=== PATIENT | male | born 1960 | race Caucasian/White ===

== ENCOUNTER 2020-10-02 08:35 | Outpatient (REF) | payer BC, SELFPAY ==
--- NOTE | 2020-10-02 08:43 | XR_ITS ---
EXAMINATION: XR KNEE, RIGHT CLINICAL INFORMATION: Pain right knee. COMPARISON: None TECHNIQUE: Four views of the right knee, weightbearing AP exam. FINDINGS: There is reduction in the medial and patellofemoral compartment joint space with mild superior patellar enthesophytes. No joint effusion suspected. There are no loose bodies or bony erosive changes. XR/XR knee RT 4V IMPRESSION: Mild early degenerative changes medial compartment right knee. No visible acute fracture, dislocation or subluxation seen. There is mild superior patellar enthesophytes.
== END 2020-10-02 08:36 | disposition home or self-care (01) ==
LOC: HO.HMGCX 08:35
PROVIDERS: PCP Nurse Practitioner Family; Visit Provider Nurse Practitioner Family
DX: M25.561 Pain in right knee (principal)
CPT/HCPCS: 73564

== ENCOUNTER 2020-11-23 07:00 | Outpatient (RCR) | payer BC, SELFPAY ==
--- NOTE | 2020-10-12 09:35 | MHC.PT.EP ---
[facility] [place] Office [place] Office [place] Office [address] Stephen Duggan [address] [phone] F: [phone] F: [phone] F: [phone] F: [phone] Physical Therapy Plan of Care Date of Evaluation: 10/12/20 Date of Surgery: Diagnosis: This is a 60 yo male presenting to skilled PT with a script for pain in the R knee. Assessment: This is a 60 yo male presenting to skilled PT with a script for pain in the R knee. This patient comes in today reporting knee pain that has been ongoing for about 3 weeks insidiously. He has had a medial meniscus repair on this R side about 7 years ago and his symptoms seem to be in the same area now. He is being seen by his primary care but not seeing an ortho at this time, not interested in a total knee replacement. Pain is described as constant, mainly located medially and described as sharp. He also has pain that is located medially/posteriorly at the hamstring as well especially with attempting full extension. He does not really feel functionally limited in anything as he is active and does not change his way of living. However, he does report just a general discomfort, unable to fully extend, unstable with getting on/off the ground and does not feel totally comfortable with SLS stability either . He is wearing a sleeve brace on occasion but has been getting irritated/a rash from this (he does like the compression and stability of it however. Assessment reveals pain that ranges from a 1-5/10 depending on mobility. He demos decreased ROM mainly with hamstring and knee extension, impaired quad strength, tenderness along medial L MCL/hamstring tendon, decreased patella mobility on the L and impaired gait pattern. He is functionally limited in transfers off the floor, reaching full extension with ambulation and general pain management. He is a good candidate for skilled PT 2x/wk for 5wks. Frequency and Duration: The patient will be seen 2x/wk for 5wks Short Term Goals: I in HEP Demo an improvement in knee ROM by at least 10 degs Demos proper quad activation without cuing Weans out of brace Nursing Home Goals: Patient will demo normal ROM and strength Patient will improve LEFs by 10 points Patient will demo proper gait pattern without pain, reaching full extension and proper heel strike Pain improved to no more than 1/10 at the worst Treatment Plan: Modalities to reduce pain, spasms and effusion. Manual therapy to restore motion and function. Therapeutic exercise to improve strength and flexibility. Neuromuscular re-education for posture and balance. Therapeutic activities to return to functional activities of daily living. Electronically signed by: Ann Marie Jeffers PT Please sign and return to therapist. Thank you for your referral.
--- NOTE | 2021-01-03 13:43 | MHC.PT.DC ---
[facility] [place] Office [place] Office [place] Office [address] Stephen Duggan [address] [facility] [phone] F: [phone] F: [phone] F: [phone] F: [phone] Physical Therapy Discharge Report Diagnosis: pain in the R knee Date of Surgery: Date of Evaluation: 10/12/20 Date of Discharge: Treatments to Date: 10 Cancellations to Date: 0 No Shows to Date: 0 Discharge Status: Discharge Summary: despite excellent effort on the part of the patient and good compliance, he was unable to shake the pain which is nagging on a daily basis. while he will continue with HEP, he is likely appropriate for continued monitoring as TKA may be his best bet for pain relief down the road. Electronically signed by: Lc Zhang PT Please sign and return to therapist. Thank you for your referral.
== END 2021-01-03 13:44 | disposition home or self-care (01) ==
LOC: HO.PTCHIC 07:00
PROVIDERS: PCP Nurse Practitioner Family; Visit Provider Nurse Practitioner Family
DX: M25.561 Pain in right knee (principal)
CPT/HCPCS: 97110; 97162

== ENCOUNTER 2021-01-23 13:42 | Outpatient (REF) | payer BC, SELFPAY ==
--- NOTE | ~2021-01-23 | XR_ITS ---
EXAMINATION: XR CERVICAL SPINE CLINICAL INFORMATION: M50.90 - Cervical disc disorder, unspecified. COMPARISON: None TECHNIQUE: 3 views of the cervical spine were obtained. FINDINGS: There is straightening cervical lordosis with mild rightward tilting on coronal view. No cervical vertebral compression, destructive process, or prevertebral soft tissue swelling. The odontoid appears intact. There are degenerative disc changes with disc narrowing greatest at C5-C6 and C6-C7 with disc narrowing and vertebral spurring. There is borderline retrolisthesis C5 on C6 of under 3 mm. There are lesser degenerative disc changes C2-C3 and C4-C5. There are osteophytes left lateral facet mid cervical region. XR/XR cervical spine 3V IMPRESSION: 1. Degenerative disc changes greatest at C5-C6 with associated vertebral spurring and borderline retrolisthesis. 2. Prominent degenerative disc changes also present at C6-C7. 3. No vertebral compression or destructive process.
[2021-01-23 16:48] LABS: Alanine Aminotransferase 23 U/L (0-40); Albumin Level 4.3 g/dL (3.5-5.0); Alkaline Phosphatase 97 U/L (39-117); Anion Gap 13 (12-20); Aspartate Amino Transferase 20 U/L (5-37); Bilirubin Total 1.3 mg/dL (0.0-1.0); Blood Urea Nitrogen 16 mg/dL (9-16); Calcium 9.4 mg/dL (8.4-10.2); Carbon Dioxide 26 mmol/L (22-29); Chloride 103 mmol/L (96-108); Cholesterol 194 mg/dL; Estimated Glomerular Filt Rate > 60; Glucose Fasting 89 mg/dL (60-99); HDL Cholesterol 51 mg/dL; LDL Cholesterol Calculated 122 mg/dl; Potassium 4.4 mmol/L (3.3-5.1); Sodium 138 mmol/L (135-145); Total Protein 7.3 g/dL (6.5-8.0); Triglycerides 109 mg/dL
[2021-01-23 17:08] LABS: Prostate Specific Antigen Scr 2.33 ng/mL (<0.05-4.0); TSH reflex Free T4 1.38 uIU/mL (0.32-4.0)
[2021-01-24 04:40] LABS: SARS COV2 IgG Negative (Negative)
== END 2021-01-23 13:43 | disposition home or self-care (01) ==
LOC: HO.HMGCLDS 13:42
PROVIDERS: PCP Nurse Practitioner Family; Visit Provider Nurse Practitioner Family
DX: Z00.00 Encounter for general adult medical examination without abnormal findings (principal); Z20.822 Contact with and (suspected) exposure to COVID-19; Z12.5 Encounter for screening for malignant neoplasm of prostate; M50.90 Cervical disc disorder, unspecified, unspecified cervical region
CPT/HCPCS: 36415; 72040; 80053; 80061; 84153; 84443; 86769

== ENCOUNTER 2021-02-05 19:26 | Outpatient (REF) | payer BC, SELFPAY ==
--- NOTE | ~2021-02-05 | MR_ITS ---
EXAMINATION: MR KNEE WITHOUT CONTRAST, RIGHT CLINICAL INFORMATION: Right knee pain. Symptoms x6 months. History of meniscal surgery. COMPARISON: 05/16/2014 TECHNIQUE: MRI of the knee without contrast was performed using routine sequences on a high-field scanner. FINDINGS: MENISCI: Medial Meniscus: The posterior horn and body are decreased in size as compared to the prior study, consistent with prior partial meniscectomy. As seen on 02/13 of series 4 and image 05/18 of series 5, there is a new radial component to the tear at the junction of the posterior horn and body with partial extrusion of the meniscal body. Surrounding soft tissues are edematous. There is significant undersurface fraying at the posterior horn. Lateral Meniscus: A very small horizontal tear is suspected at the junction of the posterior horn and body, extending to the meniscal undersurface. LIGAMENTS: Cruciate: Intact. Collateral: Edema signal around the MCL is likely reactive to the underlying meniscal abnormality. Collateral ligaments are intact. EXTENSOR MECHANISM: Enthesopathic spurring is present in the quadriceps tendon insertion of the patella. Quadriceps and patellar tendons are intact. ARTICULAR CARTILAGE/BONE: Patellofemoral Compartment: There is mild nonuniform chondral thinning at the patella with surface irregularity. Mild nonuniform chondral thinning is present in the central trochlea with full-thickness chondral fissuring and surface irregularity. Tiny marginal osteophytes. Medial Compartment: Small marginal osteophytes are present at the medial compartment. There is mild nonuniform chondral thinning at the lateral half of the medial femoral condyle weightbearing surface and at the medial tibial plateau. Small marginal osteophytes. Lateral Compartment: Normal. Mild osteoarthritis in the proximal tibiofibular joint. JOINT FLUID AND BURSAE: Trace joint effusion and Phoenix's cyst. MR/MR knee RT wo con IMPRESSION: 1. Radial tear of the medial meniscus at the junction of the posterior horn and body, superimposed upon changes of prior partial meniscectomy. 2. Very small horizontal partial tear at the lateral meniscus. 3. Minimal osteoarthritis in the patellofemoral and medial compartments. 4. Trace joint effusion and Phoenix's cyst.
== END 2021-02-05 19:27 | disposition home or self-care (01) ==
LOC: HO.MRI 19:26
PROVIDERS: Visit Provider Nurse Practitioner Family
DX: M25.561 Pain in right knee (principal)
CPT/HCPCS: 73721

== ENCOUNTER → 2021-03-06 09:22 | Outpatient (BNVA) | payer BC, SELFPAY | PROVIDERS: PCP Nurse Practitioner Family; Referring Provider Nurse Practitioner Family; Visit Provider Nurse Practitioner Family ==

== ENCOUNTER 2021-05-17 10:00 | Day surgery (SDC) | payer BC, SELFPAY ==
[2021-05-13 10:53] VITALS: BMI 32.8
--- NOTE | 2021-05-16 08:45 | HO.ANESPROP2 ---
Documented by User: Adry Mcclellna NP 05/16/21 08:45 HPI - Anesthesia Eval Consult details Narrative: 60yo M for ?Colonoscopy PMFSH Active Problems Active Problems: All Active Problems (Updated 05/13/21 @ 10:49 by Purvi Mehta, NIKOLAS) Right knee pain (Acute) Physical exam (Acute) Screening PSA (prostate specific antigen) (Acute) Encounter for screening for COVID-19 (Acute) Cervical neck pain with evidence of disc disease (Acute) HTN (hypertension) (Acute) Screening for colon cancer (Acute) Past Medical History Medical History Actinic keratoses Hypertension Family History Family History Father Hypertension Diabetes Mother Hypertension Aneurysm Surgical History Surgical History H/O colonoscopy H/O umbilical hernia repair Hx of arthroscopy of knee Social History Social History Alcohol intake: current Alcohol intake frequency: a few times a week Patient Tobacco Use Status: Tobacco use Unknown Advance Directives Information Provided: No Advance Directives on File: No Meds Allergies Allergy/AdvReac Type Severity Reaction Status Date / Time No Known Allergies Allergy Verified 05/17/21 11:21 Home Medications Medication Instructions Recorded Confirmed Last Taken Type meloxicam 15 mg tablet 15 mg PO DAILY 03/06/21 05/13/21 Unknown History Exam Exam Date and Time: May 16, 2021 0845 Height,Weight and Vital Signs: Height 5 ft 11 in Weight 106.594 kg Assessment and Plan Assessment Anesthesia Assessment: Chart Reviewed Documented by User: Thalia Ferreira MD 05/17/21 12:06 PMFSH Past Medical History Medical History Actinic keratoses Hypertension Family History Family History Father Hypertension Diabetes Mother Hypertension Aneurysm Family history of problems with anesthesia: No Surgical History Surgical History H/O colonoscopy H/O umbilical hernia repair Hx of arthroscopy of knee History of Problems with Anesthesia: No Social History Social History Alcohol intake: current Alcohol intake frequency: a few times a week Patient Tobacco Use Status: Tobacco use Unknown Advance Directives Information Provided: No Advance Directives on File: No Meds Allergies Allergy/AdvReac Type Severity Reaction Status Date / Time No Known Allergies Allergy Verified 05/17/21 11:21 Home Medications Medication Instructions Recorded Confirmed Last Taken Type meloxicam 15 mg tablet 15 mg PO DAILY 03/06/21 05/13/21 Unknown History Exam Airway Mallampati Class: II TM Dist: >3cm Neck ROM: Full Assessment and Plan Assessment Anesthesia Assessment: Anesthesia Plan Discussed Final Anesthetic Review Family History of Problems with Anesthesia: No History of Problems with Anesthesia: No NPO: No ASA Class: II Final Preanesthetic Review: No Changes in Pt Med Stat, Meds/Allgs Chart Reviewed, Consent Obtained/Reviewed and Anes Risks/Benef Reviewed Patient Risk: Low Procedure Risk: Low Assessment/Block/Sedation in SS: Assess/Block/Sedation-SS Anesthetic Plan Anesthetic Plan: MAC: Disposition: Standard PACU
[2021-05-17 11:23] VITALS: BP 138/83; PULSE 78; RESP 16; TEMP 37.2; O2SAT 96
[2021-05-17] MEDS: Lactated Ringers 1,000 ML 100 ML IVCONT (12:00)
--- NOTE | 2021-05-17 12:26 | MHC.SHP ---
Pre-Procedural Eval Section A Date of Service: 05/17/21 The patient is an INPATIENT: No The History & Physical has been completed within 30 days and I have reviewed it.: No Section B Chief Complaint: Screening Details of Present Illness: Colon cancer screening Relevant Family History (Specify if Yes): No Relevant Social History: None Present Medications: see Short Stay Collaborative assessment Medical History: Significant History (Actinic keratoses Hypertension) History of Previous Operations: Relevant previous surgery/procedure and date(s) (H/O colonoscopy H/O umbilical hernia repair) Allergies: Allergies Allergy/AdvReac Type Severity Reaction Status Date / Time No Known Allergies Allergy Verified 05/17/21 11:21 Review of Systems Sugical H&P ROS: Negative: Constitution, Cardiovascular, Respiratory and Gastrointestinal Exam Surgical H&P Exam: Normal: Heart, Normal: Lungs, Normal: Extremities and Normal: Abdomen Plan Diagnosis/Plan: Unchanged I have reviewed the history and physical and performed a pertinent physical examination on my patient. No changes have occurred unless specified.
--- NOTE | 2021-05-17 12:48 | W.PM.OPN ---
Operative Note Operative Note Date of Service: 05/17/21 Narrative: Pre-op diagnosis:?Colon cancer screening Post-op diagnosis:?other (Colon polyps, diverticulosis, hemorrhoids) Procedure:? COLONOSCOPY TILL CECUM WITH SNARE POLYPECTOMY Consent: Indications for the procedure and potential complications of bleeding, perforation, reaction to medications and missed diagnosis were discussed with the patient and informed consent was obtained. Instrument: Olympus PCF H 190 L variable stiffness pediatric colonoscope Monitoring: Vital signs and clinical assessment, intermittent blood pressure monitoring, continuous EKG monitoring, Pulse oximetry and Carbon Dioxide monitoring were done throughout the procedure. Colon withdrawl time was 30 minutes. Procedure: The patient was placed in the left lateral decubitis position and pre-procedure medications were administered. After a digital rectal examination of the ano-rectum, the video colonoscope was inserted into the rectum and advanced through the colon to the cecum. The colonoscope was slowly withdrawn in a retrograde panoramic fashion and the colon mucosa was carefully examined including a retroflexed view of the rectum. Findings and interventions are described below. Procedure Difficulty: Without difficulty Findings: Terminal Ileum: Not evaluated Cecum:? Normal Ascending Colon:? Normal Transverse Colon:? Normal Descending Colon: Moderate diverticulosis Sigmoid Colon:? A 15 to 18 mm sessile polyp removed with a hot snare.? Moderate diverticulosis Rectum:? Normal Ano-rectum:? Moderate internal hemorrhoids Colon preparation:? Good and fair in the right colon due to a thin layer of adherent stools Impression and Post Procedure Diagnosis: Colonoscopy Findings: One medium sized polyps removed Moderate diverticulosis seen in the left colon Moderate hemorrhoids on retroflexed exam. Plan: Await pathology results Patient has an appointment on 05/31/21 in the GI Clinic with ? Bhargavi Larose FNP-MERE . Repeat Colonoscopy interval based on path results - in 3 years if polyps are adenomatous and 5 years if polyps are hyperplastic. Above findings were reviewed with the patient and colon polyps and diverticulosis handouts were given in the discharge area Surgeon:?Jaylon Corrigan MD Anesthesia:?MAC (Sarah Gupta CRNA) Was an Front Of House Manager used for this Procedure?:?Yes Front Of House Manager:?Lalitha Srivastava Estimated blood loss (mL):?0 Pathology:?other (a: sigmoid polyp) Condition:?stable Disposition:?PACU
[2021-05-17 13:37] VITALS: BP 116/67; PULSE 76; RESP 16; TEMP 36.3; O2SAT 94
[2021-05-17 13:52] VITALS: BP 131/85; PULSE 75; RESP 18; TEMP 36.7; O2SAT 97
== END 2021-05-17 14:29 | disposition home or self-care (01) ==
PROVIDERS: PCP Nurse Practitioner Family; Visit Provider Internal Medicine Gastroenterology
PROC: 0DJD8ZZ Inspection of Lower Intestinal Tract, Via Natural or Artificial Opening Endoscopic (ICD-10-PCS; CPT 45378; principal; 2021-05-17 12:00)
DX: Z12.11 Encounter for screening for malignant neoplasm of colon (principal); K63.5 Polyp of colon; K64.8 Other hemorrhoids; K57.30 Diverticulosis of large intestine without perforation or abscess without bleeding
CPT/HCPCS: 45385; 88305

== ENCOUNTER → 2021-05-31 09:28 | Outpatient (BNVA) | payer BC, SELFPAY | PROVIDERS: PCP Nurse Practitioner Family; Visit Provider Nurse Practitioner Family ==

== ENCOUNTER 2021-12-17 07:03 | Outpatient (REF) | payer BC, SELFPAY ==
[2021-12-17 11:34] LABS: Appearance Urine CLEAR; Color Urine YELLOW; Glucose Urine UA NEG (NEG); Leukocyte Esterase Urine NEG (NEG); Nitrite Urine NEG (NEG); Urine Blood NEG (NEG); Urine Ketones NEG (NEG); Urine Protein NEG (NEG-TRACE)
[2021-12-17 11:35] LABS: MANUAL DIFF FLAG NO
[2021-12-17 11:48] LABS: Basophils Absolute Auto 0.1 X10*3/uL (0.0-0.2); Basophils Percent Auto 0.7 % (0-2); Eosinophils Absolute Auto 0.6 X10*3/uL (0.0-0.4); Eosinophils Percent Auto 7.2 % (0-4); Hematocrit 52.1 % (42.0-52.0); Hemoglobin 16.8 g/dl (14.0-18.0); Imm Gran Abs Auto 0.02 X10*3/uL (0.00-0.03); Imm Gran Pct Auto 0.3 % (0.0-0.4); Lymphocytes Percent Auto 13.4 % (20-40); Mean Corpuscular HGB Conc 32.2 g/dl (31.0-36.0); Mean Corpuscular Hemoglobin 28.1 pg (27.0-33.0); Mean Corpuscular Volume 87.3 fL (80.0-98.0); Mean Platelet Volume 11.8 fL (9.4-12.4); Monocytes Absolute Auto 1.1 X10*3/uL (0.1-1.2); Neutrophils Absolute Auto 4.8 x10*3/uL (2.0-8.3); Neutrophils Percent Auto 63.4 % (45-73); Platelet Count 195 X10*3/uL (160-400); Red Blood Count 5.97 X10*6/uL (4.60-5.80); Red Cell Distribution Width 13.7 % (11.0-16.0); White Blood Count 7.6 X10*3/uL (4.8-10.8)
[2021-12-17 12:04] LABS: Alanine Aminotransferase 30 U/L (0-40); Alkaline Phosphatase 91 U/L (39-117); Anion Gap 10 (12-20); Aspartate Amino Transferase 21 U/L (5-37); Bilirubin Total 0.8 mg/dL (0.0-1.0); Blood Urea Nitrogen 13 mg/dL (9-16); Calcium 9.1 mg/dL (8.4-10.2); Carbon Dioxide 29 mmol/L (22-29); Chloride 103 mmol/L (96-108); Cholesterol 177 mg/dL; Estimated Glomerular Filt Rate > 60; Glucose Fasting 103 mg/dL (60-99); HDL Cholesterol 45 mg/dL; LDL Cholesterol Calculated 106 mg/dl; Potassium 4.7 mmol/L (3.3-5.1); Sodium 137 mmol/L (135-145); Total Protein 6.8 g/dL (6.5-8.0); Triglycerides 134 mg/dL
[2021-12-17 12:28] LABS: Ferritin 330 ng/mL (20-250); Folate 11.8 ng/mL (> or = 4.0); TSH reflex Free T4 1.71 uIU/mL (0.32-4.0); Vitamin B12 323 pg/mL (200-900)
== END 2021-12-17 07:04 | disposition home or self-care (01) ==
LOC: HO.HMGCLDS 07:03
PROVIDERS: Visit Provider Nurse Practitioner Family
DX: I10 Essential (primary) hypertension (principal); R42 Dizziness and giddiness
CPT/HCPCS: 36415; 80053; 80061; 81003; 82607; 82728; 82746; 84443; 85025

== ENCOUNTER 2022-01-14 10:08 | Outpatient (REF) | payer BC, SELFPAY ==
--- NOTE | ~2022-01-14 | CT_ITS ---
EXAMINATION: CT HEAD WITHOUT CONTRAST CLINICAL INFORMATION: Dizziness and giddiness COMPARISON: Previous head CT April 2013 TECHNIQUE: Contiguous axial imaging was performed from the skull base to vertex without intravenous administration of contrast. This CT examination was performed using dose optimization techniques as appropriate, variously including the following: *Automated exposure control *Adjustment of mA and/or kV according to patient size (this includes techniques or standardized protocols for targeted exams where dose is matched to indication/reason for exam; i.e. extremities or head) *Use of iterative reconstruction technique DLP: 895 mGy-cm FINDINGS: There is no evidence of acute intracranial hemorrhage or territorial infarction. No abnormal mass effect or midline shift is seen. Crocker to white matter differentiation is well preserved. No extra-axial fluid collections are identified. The ventricles are normal in size. There is no abnormal attenuation within the brain parenchyma. The osseous structures and soft tissues are normal. There is right maxillary and bilateral frontal and ethmoid sinus disease. There is underaeration or hypoplasia of the frontal sinuses. Mastoid air cells and middle ears are clear. CT/CT head/brain wo con IMPRESSION: No acute intracranial findings. Sinusitis.
--- NOTE | ~2022-01-14 | US_ITS ---
EXAMINATION: US EXTRACRANIAL CAROTID DUPLEX, BILATERAL CLINICAL INFORMATION: Visual disturbances COMPARISON: None TECHNIQUE: Real-time ultrasound and Doppler techniques (integrating B-mode 2-D vascular images, Doppler spectral analysis and color-flow Doppler imaging) were utilized to interrogate the extracranial carotid arteries, the vertebral arteries and proximal subclavian arteries bilaterally. The degree of stenosis is determined by criteria similar to NASCET. FINDINGS: Right Side: 1. There is no atherosclerotic plaque seen in the bifurcation/proximal ICA region. 2. The common carotid artery PSV proximally is 96 cm/s and distally 99 cm/s. 3. The proximal internal carotid artery velocities are 93 cm/s systolic and 24 cm/s diastolic. 4. The proximal external carotid artery PSV is 129 cm/s. 5. The vertebral artery shows antegrade flow. 6. The subclavian artery waveforms are normal. Left Side: 1. There is no atherosclerotic plaque seen in the bifurcation/proximal ICA region. 2. The common carotid artery PSV proximally is 145 cm/s and distally 97 cm/s. 3. The proximal internal carotid artery velocities are 90 cm/s systolic and 26 cm/s diastolic. 4. The proximal external carotid artery PSV is 97 cm/s. 5. The vertebral artery shows antegrade flow. 6. The subclavian artery waveforms are normal. US/US carotid duplex BI IMPRESSION: 1. RIGHT: Minimal, non-hemodynamically significant stenosis of the proximal right internal carotid artery corresponding to a 0-49% stenosis by velocity criteria. 2. LEFT: Minimal, non-hemodynamically significant stenosis of the proximal left internal carotid artery corresponding to a 0-49% stenosis by velocity criteria.
== END 2022-01-14 10:09 | disposition home or self-care (01) ==
LOC: HO.US 10:08
PROVIDERS: PCP Nurse Practitioner Family; Visit Provider Nurse Practitioner Family
DX: R42 Dizziness and giddiness (principal); I10 Essential (primary) hypertension; R41.0 Disorientation, unspecified; H53.8 Other visual disturbances
CPT/HCPCS: 70450; 93880

== ENCOUNTER 2023-06-03 07:56 | Outpatient (AMB) | payer BC, SELFPAY ==
--- NOTE | 2023-06-03 08:00 | MHC.PC.OV ---
Vital Signs 06/03/23 08:01 Height 5 ft 11 in Weight 223 lb BMI 31.1 BP 142/88 H Blood Pressure Location Rt brachial Position Sitting Pulse 58 Pulse Source Pulse Oximeter Pulse Oximetry (%) 95 Oxygen Delivery Method Room Air Intake Visit Reasons: PE Allergies No Known Allergies Allergy (Verified 06/03/23 08:06) Tobacco use date assessed: 06/03/23 Dental Screening Dental Screen Date: 06/03/23 Did you have a dental visit in the last 12 months?: Yes Did you have a dental problem in the last 6 months where you did not have access to dental care?: No Was dental information given to patient?: Patient has dentist HPI PE HPI Details Pt is here for a PE. Will order labs. Colon screen is up to date. Due for PSA, will order. Denies dribbling with urination, weak stream, and nocturia. Pt's blood pressure is elevated. Note: He would rather not take any medication. Will have pt monitor his blood pressure at home and record readings. Denies chest pain, shortness of breath, headache, dizziness, and blurred vision. Pt was seeing a case preparer and liner due to being fair skinned, encouraged him to cont to see them. Pt reports a lot of pain due to arthritis of his hands, knees, and shoulder. Educated on the importance of movement, heat. refused NATALIE today. [facility] Medical History Diverticulosis Hypertension Actinic keratoses Surgical History Hx of arthroscopy of knee H/O umbilical hernia repair H/O colonoscopy Family History Father Hypertension Diabetes Mother Hypertension Aneurysm Social History Housing: House Alcohol intake: current Alcohol intake frequency: a few times a week Patient Tobacco Use Status: Former Tobacco user e-Cigarette/Vaping Use: Never Used Second Hand Smoke Exposure: No service: No Current occupational status: employed Current occupation: [employer] Current occupational exposures/hazards: No Cognitive needs: No Hearing needs: No Vision needs: No Review of Systems Const Denies chills and Denies fever(s) Eyes Denies blurry vision ENT Denies vertigo, Denies dizziness and Denies sore throat Card Denies chest pain at rest, Denies chest pain with activity, Denies diaphoresis, Denies dyspnea and Denies dyspnea on exertion Resp Denies cough, Denies dyspnea, Denies dyspnea on exertion and Denies wheezing GI Denies abdominal pain, Denies melena, Denies hematochezia, Denies constipation, Denies diarrhea and Denies loose stools Denies hematuria Musc Denies numbness and Denies tingling Skin/Breast Denies lesions Neuro Denies vertigo, Denies dizziness, Denies numbness and Denies tingling Psych Denies anxiety, Denies depression, Denies homicidal ideation, Denies suicidal ideation and Denies other (substance abuse) Aller/Immun Denies wheezing Physical exam (Primary Care) Vital Signs: Last Vital Signs Pulse 58 06/03/23 08:01 BP 142/88 H 06/03/23 08:01 Pulse Ox 95 06/03/23 08:01 Oxygen Delivery Method Room Air 06/03/23 08:01 BMI result Body Mass Index 31.1 Tobacco/Smoking Status: Tobacco use Status Tobacco use date assessed 06/03/23 06/03/23 08:07 Patient Tobacco Use Status Former Tobacco user 06/03/23 08:10 e-Cigarette/Vaping Use Never Used 06/03/23 08:10 Const General: cooperative Nutritional Appearance: obese Orientation/consciousness: patient oriented x3 HENMT Head: Yes normal to inspection, Yes normocephalic and Yes atraumatic Ears: TM's normal bilaterally Eyes General: appearance normal, both eyes and all related structures Alignment and Position: alignment normal and position normal Neck Neck: Yes normal visual inspection and Yes no lymphadenopathy Thyroid: Thyroid normal Resp Effort & Inspection: normal respiratory effort Auscultation: clear to auscultation bilaterally Cardio Rate: regular rate Rhythm: regular rhythm Heart sounds: S1 normal heart sound present, S2 normal heart sound present and no murmurs GI Palpation (GI): Soft to palpation and nontender Auscultation: normal bowel sounds Male General Exam: Yes normal external exam Penis: normal penis Scrotum: scrotum normal, testes descended bilaterally and no inguinal hernias Testes: no testicular mass Skin Rashes: no rashes Neuro General: patient oriented x3, moves all extremities, no focal motor deficits and deep tendon reflexes 2+ bilaterally Romberg Test: Negative Psych Appearance: grossly normal Mental Status: mental status grossly normal Speech and movement: Normal speech and movement present Affect: normal affect Attitude: cooperative Thought process: Normal thought process present Thought content: Normal thought content present Insight: Good insight present (Psych) Judgement: Good judgement present (Psych) Assessment and Plan Assessment & Plan (1) Physical exam: Code(s): Z00.00 - Encounter for general adult medical examination without abnormal findings Plan: Labs ordered (2) Screening PSA (prostate specific antigen): Code(s): Z12.5 - Encounter for screening for malignant neoplasm of prostate Plan: PSA ordered Plan The patient agreed to the use of a medical billing and coding instructor for this encounter. Scribed for DARRYN Handley by Flaca Roberson medical billing and coding instructor, on 06/03/2023 at 08:10 EST. Orders: Orders Comprehensive Neptune. Panel Fast Today Z00.00 - Encounter for general adult medical examination without abnormal findings AMB EKG-In Office Today Z00.00 - Encounter for general adult medical examination without abnormal findings Complete Blood Count Auto Diff Today Z00.00 - Encounter for general adult medical examination without abnormal findings TSH reflex Free T4 Today Z00.00 - Encounter for general adult medical examination without abnormal findings UA CC w/rflx Micro + Cult Today Z00.00 - Encounter for general adult medical examination without abnormal findings Lipid Panel Today Z00.00 - Encounter for general adult medical examination without abnormal findings Prostate Specific Antigen Scr Today Z12.5 - Encounter for screening for malignant neoplasm of prostate Coding Level of Care Code Est Pt Prev Care 40-64y(56500) Diagnoses Physical exam Z00.00 Screening PSA (prostate specific antigen) Z12.5
[2023-06-03 08:01] VITALS: BP 142/88; PULSE 58; O2SAT 95; BMI 31.1
== END 2023-06-03 08:37 | disposition home or self-care (01) ==
PROVIDERS: PCP Nurse Practitioner Family; Visit Provider Nurse Practitioner Family
DX: Z00.00 Encounter for general adult medical examination without abnormal findings (principal); Z12.5 Encounter for screening for malignant neoplasm of prostate
CPT/HCPCS: 99396

== ENCOUNTER 2023-06-03 08:57 | Outpatient (REF) | payer BC, SELFPAY ==
[2023-06-03 11:50] LABS: Appearance Urine Clear; Color Urine Yellow; Glucose Urine UA Negative (Negative); Leukocyte Esterase Urine Negative (Negative); Nitrite Urine Negative (Negative); PH 5.5 (5.0-9.0); Urine Blood Negative (Negative); Urine Ketones Negative (Negative); Urine Protein Negative (Neg-Trace)
[2023-06-03 11:57] LABS: MANUAL DIFF FLAG NO
[2023-06-03 12:03] LABS: Basophils Absolute Auto 0.1 X10*3/uL (0.0-0.2); Basophils Percent Auto 0.9 % (0-2); Eosinophils Absolute Auto 0.2 X10*3/uL (0.0-0.4); Eosinophils Percent Auto 3.8 % (0-4); Hematocrit 50.1 % (42.0-52.0); Hemoglobin 16.5 g/dl (14.0-18.0); Imm Gran Abs Auto 0.02 X10*3/uL (0.00-0.03); Imm Gran Pct Auto 0.3 % (0.0-0.4); Lymphocytes Absolute Auto 1.6 X10*3/uL (1.2-4.9); Lymphocytes Percent Auto 27.1 % (20-40); Mean Corpuscular HGB Conc 32.9 g/dl (31.0-36.0); Mean Corpuscular Hemoglobin 28.6 pg (27.0-33.0); Mean Corpuscular Volume 86.8 fL (80.0-98.0); Mean Platelet Volume 11.6 fL (9.4-12.4); Monocytes Absolute Auto 0.6 X10*3/uL (0.1-1.2); Monocytes Percent Auto 10.9 % (2-11); Neutrophils Absolute Auto 3.3 x10*3/uL (2.0-8.3); Platelet Count 204 X10*3/uL (160-400); Red Blood Count 5.77 X10*6/uL (4.60-5.80); Red Cell Distribution Width 13.4 % (11.0-16.0); White Blood Count 5.8 X10*3/uL (4.8-10.8)
[2023-06-03 12:34] LABS: Alanine Aminotransferase 22 U/L (0-40); Albumin Level 4.2 g/dL (3.5-5.0); Alkaline Phosphatase 82 U/L (39-117); Anion Gap 10 (12-20); Aspartate Amino Transferase 20 U/L (5-37); Blood Urea Nitrogen 19 mg/dL (9-16); Calcium 9.6 mg/dL (8.4-10.2); Carbon Dioxide 27 mmol/L (22-29); Chloride 105 mmol/L (96-108); Cholesterol 195 mg/dL (<200); Estimated Glomerular Filt Rate > 60; Glucose Fasting 105 mg/dL (60-99); HDL Cholesterol 54 mg/dL (>40); LDL Cholesterol Calculated 118 mg/dL (<100); Potassium 4.4 mmol/L (3.3-5.1); Sodium 138 mmol/L (135-145); Total Protein 7.2 g/dL (6.5-8.0); Triglycerides 117 mg/dL (<150)
[2023-06-03 12:42] LABS: Prostate Specific Antigen Scr 2.01 ng/mL (<0.05-4.0)
[2023-06-03 12:53] LABS: TSH reflex Free T4 1.81 uIU/mL (0.32-4.0)
== END 2023-06-03 08:58 | disposition home or self-care (01) ==
LOC: HO.HMGCLDS 08:57
PROVIDERS: PCP Nurse Practitioner Family; Visit Provider Nurse Practitioner Family
DX: Z00.00 Encounter for general adult medical examination without abnormal findings (principal); Z12.5 Encounter for screening for malignant neoplasm of prostate; Z13.220 Encounter for screening for lipoid disorders; Z13.29 Encounter for screening for other suspected endocrine disorder; Z13.0 Encounter for screening for diseases of the blood and blood-forming organs and certain disorders involving the immune mechanism
CPT/HCPCS: 36415; 80053; 80061; 81003; 84153; 84443; 85025

== ENCOUNTER 2023-12-08 08:24 | Outpatient (AMB) | payer BC, SELFPAY ==
[2023-12-08 08:27] VITALS: BP 140/80; PULSE 60; O2SAT 96; BMI 31.5
--- NOTE | 2023-12-08 08:27 | A.OFFPC_ITS ---
Vital Signs 12/08/23 08:27 Height 5 ft 11 in Weight 226 lb BMI 31.5 BP 140/80 H Blood Pressure Location Lt brachial Position Sitting Pulse 60 Pulse Source Pulse Oximeter Pulse Oximetry (%) 96 Oxygen Delivery Method Room Air Intake Visit Reasons: 6 month fu Intake Note: pt is here for 6 month follow up Check Processing Clerk Required: No Accompanied by: Self / Same As Patient Allergies No Known Allergies Allergy (Verified 12/08/23 08:57) Medication List - Last Reconciled 12/08/23 by DARRYN Trent No Known Home Meds Tobacco use date assessed: 12/08/23 Fall risk assessment: No Falls in past year Last assessed Fall Risk: 12/08/23 Dental Screening Dental Screen Date: 12/08/23 Did you have a dental visit in the last 12 months?: Yes Did you have a dental problem in the last 6 months where you did not have access to dental care?: No Was dental information given to patient?: Patient has dentist HPI 6 month fu HPI Details HTN: Pt's blood pressure is elevated today. He is not currently on any medications for this. Will start amlodipine 2.5mg. Pt will drop off blood pressure readings. Denies chest pain, shortness of breath, headache, dizziness, and blurred vision. Will order labs. [facility] Medical History Diverticulosis Hypertension Actinic keratoses Surgical History S/P wisdom tooth extraction Hx of arthroscopy of knee H/O umbilical hernia repair H/O colonoscopy Family History Father Hypertension Diabetes Mother Hypertension Aneurysm Social History Housing: House Alcohol intake: current Alcohol intake frequency: a few times a week Patient Tobacco Use Status: Former Tobacco user e-Cigarette/Vaping Use: Never Used Second Hand Smoke Exposure: No service: No Current occupational status: employed Current occupation: [employer] Current occupational exposures/hazards: No Cognitive needs: No Hearing needs: No Vision needs: No Questionnaire PHQ-9 Over the last 2 weeks, how often have you been bothered by any of the following problems? 1. Little interest or pleasure in doing things: not at all 2. Feeling down, depressed, or hopeless: not at all 3. Trouble falling or staying asleep, or sleeping too much: not at all 4. Feeling tired or having little energy: not at all 5. Poor appetite or overeating: not at all 6. Feeling bad about yourself - or that you are a failure or have let yourself or your family down: not at all 7. Trouble concentrating on things, such as reading the newspaper or watching television: not at all 8. Moving or speaking so slowly that other people could have noticed. Or the opposite - being so fidgety or restless that you have been moving around a lot more than usual: not at all 9. Thoughts that you would be better off or of hurting yourself in some way: not at all Total score: 0 Depression Screening Interpretation: Negative Depression Screening Done: Yes 11674 - PHQ-9 Billing: Yes Source: Developed by Drs. Robin Carlin, Jacki Zelaya, Yobani Sanchez and colleagues, with an educational antoni from [employer]. Thrive Questionnaire Date Thrive assessed: 12/08/23 I am a: Patient What is your living situation today?: I have a steady place to live Within the past 12 months, did the food you bought not last and you didn't have the money to get more?: Never true Within the past 12 months, did you worry whether your food would run out before you got money to buy more?: Never true Do you have trouble paying for medicines?: No Do you have trouble getting transportation to medical appointments?: No Do you have trouble paying your heating and electricity bill?: No Do you have trouble taking care of your child, family member or friend?: No Do you have trouble with day-to-day activities such as bathing, preparing meals, shopping, managing finances, etc.?: No Are you currently unemployed and looking for a job?: No Are you interested in more education?: No Please select the resources that you would like help with: None Currently or been in a relationship where the following occur: no concerns reported THRIVE Score: 0 AUDIT C Alcohol Use Questionnaire (AUDIT-C) 1. How often do you have a drink containing alcohol?: 2-3 times a week 2. How many drinks containing alcohol do you have on a typical day when you are drinking?: 1 or 2 3. How often do you have six or more drinks on one occasion?: Never Total Score: 3 Score Reviewed/Action Taken: Yes MARY BETH-7 AMB Questionnaire MARY BETH-7 Date MARY BETH - 7 assessed: 12/08/23 Feeling nervous, anxious, or on edge: 0 = Not at all Not being able to stop or control worryin = Not at all Worrying too much about different things: 0 = Not at all Trouble relaxin = Not at all Being so restless that it is hard to sit still: 0 = Not at all Becoming easily annoyed or irritable: 0 = Not at all Feeling afraid as if something awful might happen: 0 = Not at all Total MARY BETH-7 score (0-4 normal; 5-9 mild; 10-14 moderate; 15-21 severe): 0 Source: Developed by Drs. Robin Carlin, Jacki Zelaya, Yobani Sanchez and colleagues, with an educational antoni from [employer]. MARY BETH-7 Assessment Billing MARY BETH-7 Assessment Tool: MARY BETH-7 Assessment 09299 Review of Systems Const Reports as per HPI Physical exam (Primary Care) Vital Signs: Last Vital Signs Pulse 60 12/08/23 08:27 BP 140/80 H 12/08/23 08:27 Pulse Ox 96 12/08/23 08:27 Oxygen Delivery Method Room Air 12/08/23 08:27 BMI result Body Mass Index 31.5 Tobacco/Smoking Status: Tobacco use Status Tobacco use date assessed 12/08/23 12/08/23 08:28 Patient Tobacco Use Status Former Tobacco user 12/08/23 08:28 e-Cigarette/Vaping Use Never Used 12/08/23 08:28 PHQ-9: PHQ-9 Score PHQ-9: Total score 0 12/08/23 08:40 Depression Screening Interpretation: Negative Thrive Assessment: Date of Thrive Assessment Date Thrive assessed 12/08/23 12/08/23 08:37 Currently or been in a relationship where the following occur: no concerns reported Const General: cooperative Nutritional Appearance: obese Orientation/consciousness: patient oriented x3 Resp Effort & Inspection: normal respiratory effort Auscultation: clear to auscultation bilaterally Cardio Rate: regular rate Rhythm: regular rhythm Heart sounds: S1 normal heart sound present and S2 normal heart sound present Neuro General: patient oriented x3 Extrem Right lower extremity: no edema Left lower extremity: no edema Psych Appearance: grossly normal Mental Status: mental status grossly normal Speech and movement: Normal speech and movement present Affect: normal affect Attitude: cooperative Thought process: Normal thought process present Thought content: Normal thought content present Insight: Good insight present (Psych) Judgement: Good judgement present (Psych) Assessment and Plan Assessment & Plan (1) HTN (hypertension): Code(s): I10 - Essential (primary) hypertension Plan: Starting amlodipine, labs ordered, pt will take his BP at least once a week, let me know values Plan The patient agreed to the use of a senior medical transcriptionist for this encounter. Scribed for MICHELL Handley-MERE by Flaca Roberson senior medical transcriptionist, on 12/08/2023 at 08:40 EST. Orders: Orders Comprehensive [place]. Panel Fast Today I10 - Essential (primary) hypertension UA CC w/rflx Micro + Cult Today I10 - Essential (primary) hypertension Complete Blood Count Auto Diff Today I10 - Essential (primary) hypertension TSH reflex Free T4 Today I10 - Essential (primary) hypertension Lipid Panel Today I10 - Essential (primary) hypertension Medications: New amlodipine 2.5 mg PO DAILY 90 tabs 0RF Coding Level of Care Code Est Pt Level 3 (99542) Diagnoses HTN (hypertension) I10 Additional Codes MARY BETH-7 Assessment Billing - MARY BETH-7 Assessment Tool: MARY BETH-7 Assessment [id number] ([id number])
== END 2023-12-08 08:56 | disposition home or self-care (01) ==
PROVIDERS: PCP Nurse Practitioner Family; Visit Provider Nurse Practitioner Family
DX: I10 Essential (primary) hypertension (principal)
CPT/HCPCS: 99214

== ENCOUNTER 2023-12-15 06:33 | Outpatient (REF) | payer BC, SELFPAY ==
[2023-12-15 11:46] LABS: MANUAL DIFF FLAG NO
[2023-12-15 12:06] LABS: Appearance Urine Turbid; Color Urine Yellow; Glucose Urine UA Negative (Negative); Leukocyte Esterase Urine Negative (Negative); Nitrite Urine Negative (Negative); Specific Gravity - Urine >= 1.030 (1.005-1.025); Urine Blood Negative (Negative); Urine Ketones Negative (Negative); Urine Protein Negative (Neg-Trace)
[2023-12-15 12:16] LABS: Basophils Percent Auto 0.5 % (0-2); Eosinophils Absolute Auto 0.3 X10*3/uL (0.0-0.4); Eosinophils Percent Auto 4.5 % (0-4); Hematocrit 50.3 % (42.0-52.0); Hemoglobin 16.6 g/dl (14.0-18.0); Imm Gran Abs Auto 0.02 X10*3/uL (0.00-0.03); Imm Gran Pct Auto 0.3 % (0.0-0.4); Lymphocytes Absolute Auto 1.6 X10*3/uL (1.2-4.9); Mean Corpuscular Hemoglobin 28.2 pg (27.0-33.0); Mean Corpuscular Volume 85.4 fL (80.0-98.0); Mean Platelet Volume 11.3 fL (9.4-12.4); Monocytes Absolute Auto 0.7 X10*3/uL (0.1-1.2); Monocytes Percent Auto 11.3 % (2-11); Neutrophils Absolute Auto 3.7 x10*3/uL (2.0-8.3); Neutrophils Percent Auto 58.4 % (45-73); Platelet Count 209 X10*3/uL (160-400); Red Blood Count 5.89 X10*6/uL (4.60-5.80); Red Cell Distribution Width 13.3 % (11.0-16.0); White Blood Count 6.4 X10*3/uL (4.8-10.8)
[2023-12-15 13:05] LABS: Alanine Aminotransferase 25 U/L (0-40); Albumin Level 4.1 g/dL (3.5-5.0); Alkaline Phosphatase 102 U/L (39-117); Anion Gap 13 (12-20); Aspartate Amino Transferase 20 U/L (5-37); Bilirubin Total 0.8 mg/dL (0.0-1.0); Blood Urea Nitrogen 20 mg/dL (9-16); Carbon Dioxide 27 mmol/L (22-29); Chloride 103 mmol/L (96-108); Cholesterol 198 mg/dL (<200); Estimated Glomerular Filt Rate > 60; Glucose Fasting 102 mg/dL (60-99); HDL Cholesterol 47 mg/dL (>40); LDL Cholesterol Calculated 134 mg/dL (<100); Potassium 4.3 mmol/L (3.3-5.1); Sodium 139 mmol/L (135-145); TSH reflex Free T4 1.86 uIU/mL (0.32-4.0); Triglycerides 85 mg/dL (<150)
== END 2023-12-15 06:34 | disposition home or self-care (01) ==
LOC: HO.HMGCLDS 06:33
PROVIDERS: PCP Nurse Practitioner Family; Visit Provider Nurse Practitioner Family
DX: I10 Essential (primary) hypertension (principal)
CPT/HCPCS: 36415; 80053; 80061; 81003; 84443; 85025

== ENCOUNTER 2024-05-25 08:28 | Outpatient (AMB) | payer BC, SELFPAY ==
[2024-05-25 08:33] VITALS: BP 140/90; PULSE 82; O2SAT 97; BMI 30.3
--- NOTE | 2024-05-25 08:33 | MHC.PC.OV ---
Vital Signs 05/25/24 08:33 Height 5 ft 11 in Weight 217 lb BMI 30.3 BP 140/90 H Blood Pressure Location Rt brachial Position Sitting Pulse 82 Pulse Source Pulse Oximeter Pulse Oximetry (%) 97 Intake Visit Reasons: 6M F/U Intake Note: pt is here for 6 month follow up Optical Fabricator Required: No Accompanied by: Self / Same As Patient Allergies No Known Allergies Allergy (Verified 05/25/24 08:41) Medication List - Last Reconciled 05/25/24 by DARRYN Trent Tobacco use date assessed: 12/08/23 Fall risk assessment: No Falls in past year Last assessed Fall Risk: 05/25/24 Dental Screening Dental Screen Date: 12/08/23 HPI 6M F/U HPI Details HTN: Blood pressure is elevated today. He was started on amlodipine but stopped this because it caused anxiety. Will start losartan 25mg. Will have pt monitor his blood pressure at home and send values via portal. Denies chest pain, shortness of breath, headache, dizziness, and blurred vision. Pt c/o bilat thumb pain (base of thumb). Will order XRs. PFSH Medical History Diverticulosis Hypertension Actinic keratoses Surgical History S/P wisdom tooth extraction Hx of arthroscopy of knee H/O umbilical hernia repair H/O colonoscopy Family History Father Hypertension Diabetes Mother Hypertension Aneurysm Social History Housing: House Alcohol intake: current Alcohol intake frequency: a few times a week Patient Tobacco Use Status: Former Tobacco user e-Cigarette/Vaping Use: Never Used Second Hand Smoke Exposure: No service: No Current occupational status: employed Current occupation: [employer] Current occupational exposures/hazards: No Cognitive needs: No Hearing needs: No Vision needs: No Questionnaire PHQ-9 Over the last 2 weeks, how often have you been bothered by any of the following problems? 1. Little interest or pleasure in doing things: not at all 2. Feeling down, depressed, or hopeless: not at all 3. Trouble falling or staying asleep, or sleeping too much: not at all 4. Feeling tired or having little energy: not at all 5. Poor appetite or overeating: not at all 6. Feeling bad about yourself - or that you are a failure or have let yourself or your family down: not at all 7. Trouble concentrating on things, such as reading the newspaper or watching television: not at all 8. Moving or speaking so slowly that other people could have noticed. Or the opposite - being so fidgety or restless that you have been moving around a lot more than usual: not at all 9. Thoughts that you would be better off or of hurting yourself in some way: not at all Total score: 0 Depression Screening Interpretation: Negative Depression Screening Done: Yes 26122 - PHQ-9 Billing: Yes Source: Developed by Drs. Robin Carlin, Jacki Zelaya, Yobani Sanchez and colleagues, with an educational antoni from [employer]. Thrive Questionnaire Date Thrive assessed: 05/25/24 I am a: Patient What is your living situation today?: I have a steady place to live Within the past 12 months, did the food you bought not last and you didn't have the money to get more?: Never true Within the past 12 months, did you worry whether your food would run out before you got money to buy more?: Never true Do you have trouble paying for medicines?: No Do you have trouble getting transportation to medical appointments?: No Do you have trouble paying your heating and electricity bill?: No Do you have trouble taking care of your child, family member or friend?: No Do you have trouble with day-to-day activities such as bathing, preparing meals, shopping, managing finances, etc.?: No Are you currently unemployed and looking for a job?: No Are you interested in more education?: No Please select the resources that you would like help with: None Currently or been in a relationship where the following occur: No concerns reported THRIVE Score: 0 AUDIT C Alcohol Use Questionnaire (AUDIT-C) 1. How often do you have a drink containing alcohol?: 4 or more times a week 2. How many drinks containing alcohol do you have on a typical day when you are drinking?: 1 or 2 3. How often do you have six or more drinks on one occasion?: Never Total Score: 4 Score Reviewed/Action Taken: Yes MARY BETH-7 AMB Questionnaire MARY BETH-7 Date MARY BETH - 7 assessed: 05/25/24 Feeling nervous, anxious, or on edge: 0 = Not at all Not being able to stop or control worryin = Not at all Worrying too much about different things: 0 = Not at all Trouble relaxin = Not at all Being so restless that it is hard to sit still: 0 = Not at all Becoming easily annoyed or irritable: 0 = Not at all Feeling afraid as if something awful might happen: 0 = Not at all Total MARY BETH-7 score (0-4 normal; 5-9 mild; 10-14 moderate; 15-21 severe): 0 Source: Developed by Drs. Robin Carlin, Jacki Zelaya, Yobani Sanchez and colleagues, with an educational antoni from [employer]. MARY BETH-7 Assessment Billing MARY BETH-7 Assessment Tool: MARY BETH-7 Assessment 31598 Review of Systems Const Reports as per HPI Physical exam (Primary Care) Vital Signs: Last Vital Signs Pulse 82 05/25/24 08:33 BP 140/90 H 05/25/24 08:33 Pulse Ox 97 05/25/24 08:33 BMI result Body Mass Index 30.3 Tobacco/Smoking Status: Tobacco use Status Tobacco use date assessed 12/08/23 05/25/24 08:35 Patient Tobacco Use Status Former Tobacco user 05/25/24 08:35 e-Cigarette/Vaping Use Never Used 05/25/24 08:35 PHQ-9: PHQ-9 Score PHQ-9: Total score 0 05/25/24 08:35 Depression Screening Interpretation: Negative Thrive Assessment: Date of Thrive Assessment Date Thrive assessed 05/25/24 05/25/24 08:35 Currently or been in a relationship where the following occur: No concerns reported Const General: cooperative Orientation/consciousness: patient oriented x3 Resp Effort & Inspection: normal respiratory effort Auscultation: clear to auscultation bilaterally Cardio Rate: regular rate Rhythm: regular rhythm Heart sounds: S1 normal heart sound present and S2 normal heart sound present Neuro General: patient oriented x3 Extrem Other: neg finklestein test bilat. With extension and flexion of bilat thumbs, tenderness noted. Psych Appearance: grossly normal Mental Status: mental status grossly normal Speech and movement: Normal speech and movement present Affect: normal affect Attitude: cooperative Thought process: Normal thought process present Thought content: Normal thought content present Insight: Good insight present (Psych) Judgement: Good judgement present (Psych) Assessment and Plan Assessment & Plan (1) Pain of left thumb: Code(s): M79.645 - Pain in left finger(s) Plan: XR ordered (2) Pain of right thumb: Code(s): M79.644 - Pain in right finger(s) Plan: XR ordered (3) HTN (hypertension): Code(s): I10 - Essential (primary) hypertension Plan: Starting losartan, pt will send BPs via portal, labs ordered (4) Screening PSA (prostate specific antigen): Code(s): Z12.5 - Encounter for screening for malignant neoplasm of prostate Plan: PSA ordered Plan The patient agreed to the use of a vice president medical affairs for this encounter. Scribed for MICHELL Handley-BC by Flaca Roberson vice president medical affairs, on 05/25/2024 at 08:40 EST. Orders: Orders XR finger RT min 2V Today M79.644 - Pain in right finger(s), M79.645 - Pain in left finger(s) Lipid Panel Today I10 - Essential (primary) hypertension Prostate Specific Antigen Scr Today Z12.5 - Encounter for screening for malignant neoplasm of prostate XR finger LT min 2V Today M79.644 - Pain in right finger(s), M79.645 - Pain in left finger(s) Comprehensive [place]. Panel Fast Today I10 - Essential (primary) hypertension Medications: New losartan 25 mg PO DAILY 30 tabs 1RF Coding Level of Care Code Est Pt Level 3 (72549) Diagnoses Pain of left thumb M79.645 Pain of right thumb M79.644 HTN (hypertension) I10 Screening PSA (prostate specific antigen) Z12.5 Additional Codes MARY BETH-7 Assessment Billing - MARY BETH-7 Assessment Tool: MARY BETH-7 Assessment 03802 ([id number])
== END 2024-05-25 09:28 | disposition home or self-care (01) ==
PROVIDERS: PCP Nurse Practitioner Family; Visit Provider Nurse Practitioner Family
DX: M79.645 Pain in left finger(s) (principal); M79.644 Pain in right finger(s); I10 Essential (primary) hypertension; Z12.5 Encounter for screening for malignant neoplasm of prostate
CPT/HCPCS: 99213

== ENCOUNTER 2024-06-15 07:28 | Outpatient (AMB) | payer BC, SELFPAY ==
--- NOTE | 2024-06-15 07:37 | MHC.PC.OV ---
Vital Signs 06/15/24 07:39 Height 5 ft 11 in Weight 215 lb BMI 30.0 BP 110/62 Blood Pressure Location Lt brachial Position Sitting Pulse 69 Pulse Source Pulse Oximeter Pulse Oximetry (%) 98 Oxygen Delivery Method Room Air Intake Visit Reasons: PE Intake Note: Pt is here today for his PE Allergies No Known Allergies Allergy (Verified 06/15/24 07:39) Medication List - Last Reconciled 06/15/24 by DARRYN Trent losartan 25 mg PO DAILY Tobacco use date assessed: 06/15/24 Dental Screening Dental Screen Date: 12/08/23 Did you have a dental visit in the last 12 months?: Yes Did you have a dental problem in the last 6 months where you did not have access to dental care?: Yes Was dental information given to patient?: Patient has dentist HPI PE HPI Details Pt is here for a PE. Colon screen is up to date. Denies any urinary issues including weak stream, urgency, or incomplete bladder emptying. refuses NATALIE. Lab ordered [facility] Medical History Diverticulosis Hypertension Actinic keratoses Surgical History S/P wisdom tooth extraction Hx of arthroscopy of knee H/O umbilical hernia repair H/O colonoscopy Family History Father Hypertension Diabetes Mother Hypertension Aneurysm Social History Housing: House Alcohol intake: current Alcohol intake frequency: a few times a week Patient Tobacco Use Status: Former Tobacco user e-Cigarette/Vaping Use: Never Used Second Hand Smoke Exposure: No service: No Current occupational status: employed Current occupation: [employer] Current occupational exposures/hazards: No Cognitive needs: No Hearing needs: No Vision needs: Yes Questionnaire PHQ-9 Over the last 2 weeks, how often have you been bothered by any of the following problems? 92501 - PHQ-9 Billing: Patient declined-do not bill Source: Developed by Drs. Robin Carlin, Jacki Zelaya, Yobani Sanchez and colleagues, with an educational antoni from [employer]. Thrive Questionnaire Date Thrive assessed: 05/25/24 I am a: Patient What is your living situation today?: I have a steady place to live Within the past 12 months, did the food you bought not last and you didn't have the money to get more?: Never true Within the past 12 months, did you worry whether your food would run out before you got money to buy more?: Never true Do you have trouble paying for medicines?: No Do you have trouble getting transportation to medical appointments?: No Do you have trouble paying your heating and electricity bill?: No Do you have trouble taking care of your child, family member or friend?: No Do you have trouble with day-to-day activities such as bathing, preparing meals, shopping, managing finances, etc.?: No Are you currently unemployed and looking for a job?: No Are you interested in more education?: No Please select the resources that you would like help with: None Currently or been in a relationship where the following occur: No concerns reported THRIVE Score: 0 MARY BETH-7 AMB Questionnaire MARY BETH-7 Date MARY BETH - 7 assessed: 05/25/24 Source: Developed by Drs. Robin Carlin, Jacki Zelaya, Yobani Sanchez and colleagues, with an educational antoni from [employer]. MARY BETH-7 Assessment Billing MARY BETH-7 Assessment Tool: pt declined-do not bill Review of Systems Const Denies chills and Denies fever(s) Eyes Denies blurry vision ENT Denies vertigo, Denies dizziness and Denies sore throat Card Denies chest pain at rest, Denies chest pain with activity, Denies diaphoresis, Denies dyspnea and Denies dyspnea on exertion Resp Denies cough, Denies dyspnea, Denies dyspnea on exertion and Denies wheezing GI Denies abdominal pain, Denies melena, Denies hematochezia, Denies constipation, Denies diarrhea and Denies loose stools Denies hematuria Musc Denies numbness and Denies tingling Skin/Breast Denies lesions Neuro Denies vertigo, Denies dizziness, Denies numbness and Denies tingling Psych Denies anxiety, Denies depression, Denies homicidal ideation, Denies suicidal ideation and Denies other (substance abuse) Aller/Immun Denies wheezing Physical exam (Primary Care) Vital Signs: Last Vital Signs Pulse 69 06/15/24 07:39 BP 110/62 06/15/24 07:39 Pulse Ox 98 06/15/24 07:39 Oxygen Delivery Method Room Air 06/15/24 07:39 BMI result Body Mass Index 30.0 Tobacco/Smoking Status: Tobacco use Status Tobacco use date assessed 06/15/24 06/15/24 07:41 Patient Tobacco Use Status Former Tobacco user 06/15/24 07:38 e-Cigarette/Vaping Use Never Used 06/15/24 07:38 Thrive Assessment: Date of Thrive Assessment Date Thrive assessed 05/25/24 06/15/24 07:38 Currently or been in a relationship where the following occur: No concerns reported Const General: cooperative Nutritional Appearance: well nourished Orientation/consciousness: patient oriented x3 HENMT Head: Yes normal to inspection, Yes normocephalic and Yes atraumatic Ears: TM normal on the right and TM normal on the left Eyes General: appearance normal, both eyes and all related structures Alignment and Position: alignment normal and position normal Neck Neck: Yes normal visual inspection, Yes no lymphadenopathy and Yes supple Resp Effort & Inspection: normal respiratory effort Auscultation: clear to auscultation bilaterally Cardio Rate: regular rate Rhythm: regular rhythm Heart sounds: S1 normal heart sound present, S2 normal heart sound present and no murmurs GI Palpation (GI): Soft to palpation and nontender Auscultation: normal bowel sounds Male General Exam: Yes normal external exam Penis: normal penis Scrotum: scrotum normal, testes descended bilaterally and no inguinal hernias Testes: no testicular mass Skin Other: very fair skinned. freckles throughout. scattered papular skin colored lesions (upper extremities, head) Rashes: no rashes Neuro General: patient oriented x3, moves all extremities, no focal motor deficits and deep tendon reflexes 2+ bilaterally Romberg Test: Negative Extrem Right lower extremity: no edema Left lower extremity: no edema Psych Affect: normal affect Attitude: cooperative Thought process: Normal thought process present Assessment and Plan Assessment & Plan (1) Skin change: Code(s): R23.9 - Unspecified skin changes (2) Physical exam: Code(s): Z00.00 - Encounter for general adult medical examination without abnormal findings Plan: labs ordered Orders: Referrals Dermatology Referral R23.9 - Unspecified skin changes Coding Level of Care Code Est Pt Prev Care 40-64y(64496) Diagnoses Skin change R23.9 Physical exam Z00.00
[2024-06-15 07:39] VITALS: BP 110/62; PULSE 69; O2SAT 98
== END 2024-06-15 08:17 | disposition home or self-care (01) ==
PROVIDERS: PCP Nurse Practitioner Family; Visit Provider Nurse Practitioner Family
DX: R23.9 Unspecified skin changes (principal); Z00.00 Encounter for general adult medical examination without abnormal findings

== ENCOUNTER → 2024-06-15 07:28 | Outpatient (BNVA) | payer BC, SELFPAY | PROVIDERS: PCP Nurse Practitioner Family; Visit Provider Nurse Practitioner Family | DX: Z00.01 Encounter for general adult medical examination with abnormal findings (principal); R23.9 Unspecified skin changes ==

== ENCOUNTER 2024-06-15 08:17 | Outpatient (REF) | payer BC, SELFPAY ==
--- NOTE | ~2024-06-15 | XR_ITS ---
EXAMINATION: XR FINGER, RIGHT CLINICAL INFORMATION: M79.644 - Pain in right finger(s) COMPARISON: None available. TECHNIQUE: Three views of the right thumb. FINDINGS: There is no fracture, dislocation, or suspicious focal bone lesion. There is no malalignment. There is normal bone mineralization. Mild changes of osteoarthritis are present in the DIP joints diffusely, and interphalangeal joint of the thumb. The MCPs appear normal. The PIPs appear normal . Mild to moderate osteoarthrosis at the first CMC joint and mild changes of the STT joints. No soft tissue abnormalities. XR/XR finger RT min 2V IMPRESSION: 1. No acute findings left fingers. 2. 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 Mild changes of the STT joints, Electronically signed by: Juma Oneal MD 08/22/2024 11:33 AM [facility]
--- NOTE | ~2024-06-15 | XR_ITS ---
EXAMINATION: XR FINGER, LEFT CLINICAL INFORMATION: M79.645 - Pain in left finger(s) COMPARISON: None available. TECHNIQUE: Three views of the left thumb. FINDINGS: There is no fracture, dislocation, or suspicious focal bone lesion. There is no malalignment. There is normal bone mineralization. Mild changes of osteoarthritis are present in the DIP joints diffusely, and interphalangeal joint of the thumb. The MCPs appear normal. The PIPs appear normal . Mild to moderate osteoarthrosis at the first CMC joint and mild changes of the STT joints. No soft tissue abnormalities. XR/XR finger LT min 2V IMPRESSION: 1. No acute findings left fingers. 2. 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 Mild changes of the STT joints, Electronically signed by: Juma Oneal MD 08/22/2024 11:29 AM [facility]
[2024-06-15 10:44] LABS: Prostate Specific Antigen Scr 4.09 ng/mL (<0.05-4.0)
[2024-06-15 10:53] LABS: Alanine Aminotransferase 23 U/L (0-40); Albumin Level 3.9 g/dL (3.5-5.0); Alkaline Phosphatase 84 U/L (39-117); Anion Gap 9 (12-20); Aspartate Amino Transferase 17 U/L (5-37); Bilirubin Total 0.8 mg/dL (0.0-1.0); Blood Urea Nitrogen 17 mg/dL (9-16); Calcium 9.3 mg/dL (8.4-10.2); Carbon Dioxide 26 mmol/L (22-29); Chloride 109 mmol/L (96-108); Cholesterol 159 mg/dL (<200); Estimated Glomerular Filt Rate > 60; Glucose Fasting 110 mg/dL (60-99); HDL Cholesterol 56 mg/dL (>40); LDL Cholesterol Calculated 87 mg/dL (<100); Potassium 4.4 mmol/L (3.3-5.1); Sodium 140 mmol/L (135-145); Total Protein 6.9 g/dL (6.5-8.0); Triglycerides 81 mg/dL (<150)
== END 2024-06-15 08:18 | disposition home or self-care (01) ==
LOC: HO.HMGCX 08:17
PROVIDERS: PCP Nurse Practitioner Family; Visit Provider Nurse Practitioner Family
DX: M79.645 Pain in left finger(s) (principal); M79.644 Pain in right finger(s); Z12.5 Encounter for screening for malignant neoplasm of prostate; I10 Essential (primary) hypertension
CPT/HCPCS: 36415; 73140; 80053; 80061; 84153

== ENCOUNTER → 2024-06-15 08:45 | Outpatient (BNV) | payer BC, SELFPAY | PROVIDERS: PCP Nurse Practitioner Family; Visit Provider Radiology Diagnostic Radiology | DX: M18.0 Bilateral primary osteoarthritis of first carpometacarpal joints (principal) | CPT/HCPCS: 73140 ==

== ENCOUNTER 2024-12-14 10:07 | Outpatient (AMB) | payer BC, SELFPAY ==
[2024-12-14 10:13] VITALS: BP 148/84; PULSE 77; RESP 18; TEMP 36.6; O2SAT 98; BMI 31.1
--- NOTE | 2024-12-14 10:13 | MHC.PC.OV ---
Vital Signs 12/14/24 10:13 12/14/24 11:17 Height 5 ft 11 in Weight 223 lb BMI 31.1 BP 148/84 H 128/82 Blood Pressure Location Lt brachial Lt brachial Position Sitting Sitting Respiration 18 Pulse 77 Pulse Source Pulse Oximeter Temp 97.9 F Temp Source Oral Pulse Oximetry (%) 98 Oxygen Delivery Method Room Air Intake Visit Reasons: 6 months f/up Intake Note: Pt is here today for 6 month follow up. Allergies No Known Allergies Allergy (Verified 12/14/24 11:22) Medication List - Last Reconciled 12/14/24 by DARRYN Trent losartan 25 mg PO DAILY Tobacco use date assessed: 12/14/24 Fall risk assessment: No Falls in past year Last assessed Fall Risk: 12/14/24 Dental Screening Dental Screen Date: 12/14/24 Did you have a dental visit in the last 12 months?: Yes Did you have a dental problem in the last 6 months where you did not have access to dental care?: No Was dental information given to patient?: Patient has dentist HPI 6 months f/up HPI Details Chief Complaint History of Present Illness The patient is a 64-year-old male presenting for hypertension management. At home, his blood pressure readings are typically normal, with occasional fluctuations. He does not report any symptoms like chest pain, shortness of breath, headaches, blurred vision, or dizziness. He is mildly dehydrated, underscoring the importance of fluid intake. He also has an elevated PSA level that requires further urological assessment and monitoring. Social History Health Maintenance - Encouraged adequate hydration to address mild dehydration. - Discussed obtaining laboratory studies in the near term. - Advised follow-up with urology concerning elevated PSA levels. Review of Systems - Cardiovascular: Denies chest pain. - Respiratory: Denies shortness of breath. - Neurological: Denies headache, blurred vision, dizziness. Physical Exam General: Cooperative, healthy appearing, comfortable, no acute distress and well developed Orientation: Patient oriented x3 Limitations: No limitations Head: Normal to inspection Ears: Hearing grossly normal bilaterally Nose: Normal external nose present Face and sinus: Normal facial exam Eyes: Appearance normal, both eyes and all related structures Neck: Normal visual inspection and Yes full ROM Respiratory: Normal respiratory effort and able to speak in complete sentences. Clear to auscultation bilaterally Cardiovascular: Regular rate and rhythm. Normal S1 and S2 GI: Normal to inspection. Soft to palpation and nontender Skin: dry skin Neuro: Patient oriented x3 Extremities: Normal to inspection Results Plan The management plan involves continuing losartan 25 mg for hypertension. Proper hydration is essential to mitigate mild dehydration. Future laboratory tests and follow-ups with urology for PSA assessment are recommended. Paying attention to maintaining blood pressure control and ensuring medication adherence are crucial parts of the ongoing treatment strategy. Patient was informed and verbally consented to the use of an ambient scribe for clinic note documentation during this visit. Discussion Notes We discussed the current state of the patient's hypertension and the associated management strategy. I explained the benefits of losartan therapy and its role in controlling blood pressure. The importance of fluid intake in alleviating dehydration was highlighted. Regarding the elevated PSA, we talked about the potential implications and the necessity of a urological evaluation. The patient was informed about the importance of continuing to monitor his blood pressure and scheduling regular follow-ups for comprehensive care. I also emphasized obtaining lab studies soon to assess his overall health status thoroughly. Patient Instructions [facility] Medical History Diverticulosis Hypertension Actinic keratoses Surgical History S/P wisdom tooth extraction Hx of arthroscopy of knee H/O umbilical hernia repair H/O colonoscopy Family History Father Hypertension Diabetes Mother Hypertension Aneurysm Social History Housing: House Alcohol intake: current Alcohol intake frequency: a few times a week Patient Tobacco Use Status: Former Tobacco user e-Cigarette/Vaping Use: Never Used Second Hand Smoke Exposure: No service: No Current occupational status: employed Current occupation: [employer] Current occupational exposures/hazards: No Cognitive needs: No Hearing needs: No Vision needs: Yes Questionnaire PHQ-9 Over the last 2 weeks, how often have you been bothered by any of the following problems? 1. Little interest or pleasure in doing things: not at all 2. Feeling down, depressed, or hopeless: not at all 3. Trouble falling or staying asleep, or sleeping too much: not at all 4. Feeling tired or having little energy: not at all 5. Poor appetite or overeating: not at all 6. Feeling bad about yourself - or that you are a failure or have let yourself or your family down: not at all 7. Trouble concentrating on things, such as reading the newspaper or watching television: not at all 8. Moving or speaking so slowly that other people could have noticed. Or the opposite - being so fidgety or restless that you have been moving around a lot more than usual: not at all 9. Thoughts that you would be better off or of hurting yourself in some way: not at all Total score: 0 Depression Screening Interpretation: Negative Depression Screening Done: Yes 91080 - PHQ-9 Billing: Yes Source: Developed by Drs. Robin Carlin, Jacki Zelaya, Yobani Sanchez and colleagues, with an educational antoni from [employer]. Thrive Questionnaire Date Thrive assessed: 12/14/24 I am a: Patient What is your living situation today?: I have a steady place to live Within the past 12 months, did the food you bought not last and you didn't have the money to get more?: Never true Within the past 12 months, did you worry whether your food would run out before you got money to buy more?: Never true Do you have trouble paying for medicines?: No Do you have trouble getting transportation to medical appointments?: No Do you have trouble paying your heating and electricity bill?: No Do you have trouble taking care of your child, family member or friend?: No Do you have trouble with day-to-day activities such as bathing, preparing meals, shopping, managing finances, etc.?: No Are you currently unemployed and looking for a job?: No Are you interested in more education?: No Please select the resources that you would like help with: None Currently or been in a relationship where the following occur: I choose not to answer THRIVE Score: 0 AUDIT C Alcohol Use Questionnaire (AUDIT-C) 1. How often do you have a drink containing alcohol?: 2-4 times a month 2. How many drinks containing alcohol do you have on a typical day when you are drinking?: 1 or 2 3. How often do you have six or more drinks on one occasion?: Never Total Score: 2 Score Reviewed/Action Taken: Yes MARY BETH-7 AMB Questionnaire MARY BETH-7 Date MARY BETH - 7 assessed: 12/14/24 Feeling nervous, anxious, or on edge: 0 = Not at all Not being able to stop or control worryin = Not at all Worrying too much about different things: 0 = Not at all Trouble relaxin = Not at all Being so restless that it is hard to sit still: 0 = Not at all Becoming easily annoyed or irritable: 0 = Not at all Feeling afraid as if something awful might happen: 0 = Not at all Total MARY BETH-7 score (0-4 normal; 5-9 mild; 10-14 moderate; 15-21 severe): 0 Source: Developed by Drs. Robin Carlin, Jacki Zelaya, Yobani Sanchez and colleagues, with an educational antoni from [employer]. MARY BETH-7 Assessment Billing MARY BETH-7 Assessment Tool: MARY BETH-7 Assessment 09373 Physical exam (Primary Care) Vital Signs: Last Vital Signs Temp 97.9 F 12/14/24 10:13 Pulse 77 12/14/24 10:13 Resp 18 12/14/24 10:13 BP 148/84 H 12/14/24 10:13 Pulse Ox 98 12/14/24 10:13 Oxygen Delivery Method Room Air 12/14/24 10:13 BMI result Body Mass Index 31.1 Tobacco/Smoking Status: Tobacco use Status Tobacco use date assessed 12/14/24 12/14/24 10:14 Patient Tobacco Use Status Former Tobacco user 12/14/24 10:14 e-Cigarette/Vaping Use Never Used 12/14/24 10:14 PHQ-9: PHQ-9 Score PHQ-9: Total score 0 12/14/24 10:46 Depression Screening Interpretation: Negative Thrive Assessment: Date of Thrive Assessment Date Thrive assessed 12/14/24 12/14/24 10:14 Currently or been in a relationship where the following occur: I choose not to answer Coding Level of Care Code Est Pt Level 3 (96461) Diagnoses HTN (hypertension) I10 Elevated PSA R97.20 Additional Codes MARY BETH-7 Assessment Billing - MARY BETH-7 Assessment Tool: MARY BETH-7 Assessment 48652 ([id number]) PHQ-9 - 09132 - PHQ-9 Billing: Yes ([id number]) Assessment & Plan Assessment & Plan (1) HTN (hypertension): Code(s): I10 - Essential (primary) hypertension Category: Medical Plan: cont to monitor BP at home Too (2) Elevated PSA: Code(s): R97.20 - Elevated prostate specific antigen [PSA] Category: Medical Plan . Orders: Orders Complete Blood Count Auto Diff Today I10 - Essential (primary) hypertension Comprehensive [place]. Panel Fast Today I10 - Essential (primary) hypertension TSH reflex Free T4 Today I10 - Essential (primary) hypertension Prostate Specific Antigen Scr Today R97.20 - Elevated prostate specific antigen [PSA] UA CC w/rflx Micro + Cult Today I10 - Essential (primary) hypertension Lipid Panel Today I10 - Essential (primary) hypertension Medications: Refilled losartan 25 mg PO DAILY 90 tabs 1RF
[2024-12-14 11:17] VITALS: BP 128/82
== END 2024-12-14 11:26 | disposition home or self-care (01) ==
LOC: HO.HMCC 10:08
PROVIDERS: PCP Nurse Practitioner Family; Visit Provider Nurse Practitioner Family
DX: I10 Essential (primary) hypertension (principal); R97.20 Elevated prostate specific antigen [PSA]

== ENCOUNTER → 2024-12-14 10:07 | Outpatient (BNVA) | payer BC, SELFPAY | PROVIDERS: PCP Nurse Practitioner Family; Visit Provider Nurse Practitioner Family | DX: I10 Essential (primary) hypertension (principal); R97.20 Elevated prostate specific antigen [PSA]; Z79.899 Other long term (current) drug therapy | CPT/HCPCS: 96127 ==

== ENCOUNTER 2025-02-06 06:10 | Outpatient (REF) | payer BC, SELFPAY ==
[2025-02-06 10:10] LABS: MANUAL DIFF FLAG NO
[2025-02-06 10:30] LABS: Basophils Percent Auto 0.6 % (0-2); Eosinophils Absolute Auto 0.3 X10*3/uL (0.0-0.4); Imm Gran Abs Auto 0.02 X10*3/uL (0.00-0.03); Imm Gran Pct Auto 0.3 % (0.0-0.4); Lymphocytes Absolute Auto 1.5 X10*3/uL (1.2-4.9); Lymphocytes Percent Auto 19.9 % (20-40); Mean Corpuscular HGB Conc 33.3 g/dl (31.0-36.0); Mean Corpuscular Hemoglobin 28.1 pg (27.0-33.0); Mean Corpuscular Volume 84.4 fL (80.0-98.0); Mean Platelet Volume 11.6 fL (9.4-12.4); Monocytes Absolute Auto 0.7 X10*3/uL (0.1-1.2); Monocytes Percent Auto 9.8 % (2-11); Neutrophils Absolute Auto 4.8 x10*3/uL (2.0-8.3); Neutrophils Percent Auto 65.4 % (45-73); Platelet Count 192 X10*3/uL (160-400); Red Blood Count 5.69 X10*6/uL (4.60-5.80); Red Cell Distribution Width 13.8 % (11.0-16.0); White Blood Count 7.3 X10*3/uL (4.8-10.8)
[2025-02-06 10:33] LABS: Appearance Urine Clear; Color Urine Yellow; Glucose Urine UA Negative (Negative); Leukocyte Esterase Urine Small (1+) (Negative); Nitrite Urine Negative (Negative); PH 5.5 (5.0-9.0); UMIC TRIGGER UACC YES; Urine Blood Negative (Negative); Urine Ketones Negative (Negative); Urine Protein Negative (Neg-Trace)
[2025-02-06 10:37] LABS: Bacteria Urine Trace (None Seen); Hyaline Casts Urine 0-2 /LPF (0-2); RBC Urine 0-2 /HPF (0-2); Squamous Epithelial Cell Urine 0-2 /HPF (0-2); UACC Culture Trigger YES; WBC Urine 21-50 /HPF (0-5)
[2025-02-06 11:00] LABS: Prostate Specific Antigen Scr 4.43 ng/mL (<0.05-4.0)
[2025-02-06 11:14] LABS: Alanine Aminotransferase 19 U/L (0-40); Alkaline Phosphatase 84 U/L (39-117); Anion Gap 9 (12-20); Aspartate Amino Transferase 27 U/L (5-37); Bilirubin Total 0.8 mg/dL (0.0-1.0); Blood Urea Nitrogen 16 mg/dL (9-16); Calcium 9.3 mg/dL (8.4-10.2); Carbon Dioxide 28 mmol/L (22-29); Chloride 104 mmol/L (96-108); Cholesterol 187 mg/dL (<200); Estimated Glomerular Filt Rate > 60; Glucose Fasting 108 mg/dL (60-99); HDL Cholesterol 48 mg/dL (>40); LDL Cholesterol Calculated 115 mg/dL (<100); Potassium 4.4 mmol/L (3.3-5.1); Sodium 137 mmol/L (135-145); Total Protein 6.8 g/dL (6.5-8.0); Triglycerides 124 mg/dL (<150)
[2025-02-06 11:57] LABS: TSH reflex Free T4 2.76 uIU/mL (0.32-4.0)
== END 2025-02-06 06:11 | disposition home or self-care (01) ==
LOC: HO.HMGCLDS 06:10
PROVIDERS: PCP Nurse Practitioner Family; Visit Provider Nurse Practitioner Family
DX: R97.20 Elevated prostate specific antigen [PSA] (principal); I10 Essential (primary) hypertension; Z12.5 Encounter for screening for malignant neoplasm of prostate; R82.79 Other abnormal findings on microbiological examination of urine
CPT/HCPCS: 36415; 80053; 80061; 81001; 84153; 84443; 85025; 87086; 87088; 87186

== ENCOUNTER 2025-02-08 07:42 | Outpatient (AMB) | payer BC, SELFPAY ==
--- NOTE | 2025-02-08 08:02 | A.OFFVIS_ITS ---
Intake Visit Reasons: Elevated PSA Intake Note: New Patient presents for initial visit for elevated PSA Urology Medications: none Blood Thinner: none Outsole Scheduler Required: No Accompanied by: Self / Same As Patient Allergies No Known Allergies Allergy (Verified 02/08/25 08:33) Medication List - Last Reconciled 02/08/25 by DARRYN Aviles ciprofloxacin HCl 500 mg PO DAILY 3 days losartan 25 mg PO DAILY HPI Comments Details: Mickey is a very pleasant 64-year-old male patient of Dr. Malik. He has a past medical history of diverticulosis and hypertension. He presents to the office today as a new patient for an elevated PSA. In discussion with the patient today reports having followed up with his PCP and having had his PSA checked and it was noted to be elevated at which time recommendations were made for urology referral for further assessment evaluation. PSAs are as follows: PSA: 02/08 2.3, 06/13 2.0, 06/14 4.1, 02/12 4.4 When asked he does report a family history of prostate cancer. He reports his father had prostate cancer. NATALIE was performed smooth and no suspicious nodules palpated. When asked he denies any bothersome urinary issues or concerns. He denies urinary urgency, urinary frequency, incontinence, nocturia, hematuria, dysuria, foul smelling urine, changes to urinary stream, flank pain, fever, and or chills. He is happy with his current voiding parameters. We discussed at length potential causes of elevated PSA as well as further workup in risks and benefits of these interventions. All questions were answered. In office urinalysis results reviewed with the patient today. He otherwise offers no other issues or concerns at this time. PCPT risk calculator results 70% chance that prostate biopsy negative for prostate cancer, 23% chance of low-grade prostate cancer, and 7% chance of high-grade prostate cancer. Plan A repeat PSA test with controlled conditions to avoid false elevation will be conducted, along with a percent-free PSA assay for additional risk assessment. Imaging, specifically an ultrasound of the urinary system, will help evaluate prostate size. All decisions and testing align with the patient's family history and recent PSA trends, ensuring thoroughness in pursuing the least invasive path first. Patient consent was obtained for these diagnostic evaluations. Patient was informed and verbally consented to the use of an ambient scribe for clinic note documentation during this visit. Discussion Notes I reviewed with the patient the elevated PSA results and discussed the implications given his family history of prostate cancer. The rationale for repeating the PSA test under strict conditions was explained to check for any false elevation. A percent-free PSA test will also be conducted to further assess cancer risk. I recommended an ultrasound to determine the size of the pr ostate, as an enlarged prostate could result in elevated PSA levels without cancer indication. The patient was informed that depending on these results, medical options such as medications to reduce the prostate size may be considered. Risks, benefits, and alternatives of these diagnostic studies were discussed, with the patient granting consent. I also explained that based on these evaluations, they may determine if a biopsy will be necessary. [facility] Medical History Diverticulosis Hypertension Actinic keratoses Surgical History S/P wisdom tooth extraction Hx of arthroscopy of knee H/O umbilical hernia repair H/O colonoscopy Family History Father Hypertension Diabetes Mother Hypertension Aneurysm Social History Housing: House Alcohol intake: current Alcohol intake frequency: a few times a week Patient Tobacco Use Status: Former Tobacco user e-Cigarette/Vaping Use: Never Used Second Hand Smoke Exposure: No service: No Current occupational status: employed Current occupation: [employer] Current occupational exposures/hazards: No Cognitive needs: No Hearing needs: No Vision needs: Yes Review of Systems Const All systems reviewed & are unremarkable except as noted in HPI and below Physical Exam Const General: cooperative, comfortable, no acute distress, well developed, alert and awake Orientation/consciousness: patient oriented x3 Limitations: no limitations HEENT Head: Yes normal to inspection, Yes normocephalic and Yes atraumatic Ears: hearing grossly normal bilaterally Eyes General: appearance normal, both eyes and all related structures Neck Neck: Yes normal visual inspection and Yes trachea midline Chest Chest palpation & inspection: normal inspection of the chest Resp Effort & Inspection: normal respiratory effort and able to speak in complete sentences Cardio Rate: regular rate GI Inspection: Yes normal to inspection General: Yes no CVA tenderness Back/Spine/Pelvis Back: no CVA tenderness Skin General skin exam: no rashes or lesions noted Neuro General: patient oriented x3 Extrem General: Yes normal to inspection Psych Appearance: grossly normal and well kempt Mental Status: mental status grossly normal Speech and movement: Normal speech and movement present and Clear speech present Affect: normal affect Attitude: cooperative Thought process: Normal thought process present Thought content: Normal thought content present Insight: Fair insight present (Psych) Judgement: Fair judgement present (Psych) Results AMB Urinalysis, Automated UA Leukoctes 15 Inder/uL Last Edit by [employer] on 02/08/25 08:27 UA Nitrite Last Edit by [employer] on 02/08/25 08:27 UA Urobilinogen 0.2 mg/dL Last Edit by [employer] on 02/08/25 08:27 UA Protein 0 mg/dL Last Edit by [employer] on 02/08/25 08:27 UA pH 6.0 Last Edit by [employer] on 02/08/25 08:27 UA Blood 0 Mayito/uL Last Edit by [employer] on 02/08/25 08:27 UA Specific [place] 1.020 Last Edit by [employer] on 02/08/25 08:27 UA Ketone Last Edit by [employer] on 02/08/25 08:27 UA Bilirubin 0 mg/dL Last Edit by [employer] on 02/08/25 08:27 UA Glucose 0 mg/dL Last Edit by [employer] on 02/08/25 08:27 Results Reviewed Results Reviewed: Laboratory Last Values Urine pH (Auto) 6.0 02/08/25 08:25 Specific [place] (Auto) 1.020 02/08/25 08:25 Urine Protein (Auto) 0 mg/dL 02/08/25 08:25 Glucose (UA)(Auto) 0 mg/dL 02/08/25 08:25 Urine Blood (Auto) 0 Mayito/uL 02/08/25 08:25 Urine Bilirubin (Auto) 0 mg/dL 02/08/25 08:25 Urine Urobilinogen (Auto) 0.2 mg/dL 02/08/25 08:25 Leukocyte Esterase (Auto) 15 Inder/uL 02/08/25 08:25 Assessment & Plan Assessment & Plan (1) Elevated PSA: Code(s): R97.20 - Elevated prostate specific antigen [PSA] Category: Medical Plan In office urinalysis results reviewed with the patient today; as noted above. Recent PSA results were reviewed with the patient today; as noted above. We discussed potential causes of elevated PSA as well as further treatment options and risks and benefits of these treatment options. NATALIE was performed. He currently denies any bothersome urinary issues or concerns. He reports be happy with current voiding parameters. Will obtain redraw of PSA with no sex the night before, no caffeine morning of, and no heavy lifting 1-2 days prior with% free PSA. Will obtain retroperitoneal ultrasound for further assessment evaluation. Follow-up in 1-2 months with imaging and PSA; or sooner with any issues, concerns, and or questions. Orders: Orders US retroperitoneal comp Today R97.20 - Elevated prostate specific antigen [PSA] AMB Urinalysis Automated Today Z13.9 - Encounter for screening, unspecified PSA,Total (Free>4and<10) Today R97.20 - Elevated prostate specific antigen [PSA] Patient Instructions: The patient had an opportunity to ask questions regarding the treatment plan. All questions were answered. Physical exam, labs, and imaging were discussed and reviewed in detail. As well as risks, benefits, and discussion of treatment choices. No major barriers to understanding were identified. The patient expressed understanding and agreement with the above treatment plan. The patient was made aware they should contact our office by phone for worsening of their current condition, the appearance of new symptoms, or with any questions or concerns. Compliance is encouraged with any medications and follow up testing that is ordered. It is a privilege to be allowed the opportunity to participate in? your urological care.? Again, if you have any questions or concerns If you have any questions or concerns please do not hesitate to contact me. The office is [phone]. This note is constructed using voice recognition software. While every effort has been made to ensure accuracy plush cutter errors may have been included. Yours sincerely, Dacia Doll, DIET ATTENDANT-BC Coding Level of Care Code New Pt Level 3 (78075) Diagnoses Elevated PSA R97.20 Time Spent (min) 25
== END 2025-02-08 08:42 | disposition home or self-care (01) ==
LOC: HO.HUSH 07:43
PROVIDERS: PCP Nurse Practitioner Family; Visit Provider Nurse Practitioner Family
DX: Z13.9 Encounter for screening, unspecified (principal); R97.20 Elevated prostate specific antigen [PSA]
CPT/HCPCS: 99203

== ENCOUNTER → 2025-02-08 07:42 | Outpatient (BNVA) | payer BC, SELFPAY | PROVIDERS: PCP Nurse Practitioner Family; Visit Provider Nurse Practitioner Family | DX: R97.20 Elevated prostate specific antigen [PSA] (principal) | CPT/HCPCS: 81003 ==

== ENCOUNTER 2025-04-24 08:18 | Outpatient (REF) | payer BC, SELFPAY ==
--- NOTE | ~2025-04-24 | US_ITS ---
CLINICAL HISTORY: R97.20 - Elevated prostate specific antigen [PSA] US retroperitoneum Comparison: None provided Findings: Right kidney normal size and echotexture, 11.1 cm length. No hydronephrosis, mass or calculus. Normal color flow. Left kidney normal size and echotexture, 10.4 cm in length. No hydronephrosis, or calculus. Simple exophytic cyst 1.6 x 1.8 x 1.6 cm of the lower pole. Normal color flow. Urinary bladder demonstrates no calculus, mass or focal wall thickening. Prevoid bladder volume is 381, incomplete emptying with large postvoid residual volume 136 mL. Bilateral ureteral jets are seen. Prostate is not entirely seen, posterior inferior aspect is obscured by rectal gas shadowing, the visualized portion measures 3.5 x 4.9 x 4.8 cm, 42 mL. Impression: 1. Incomplete emptying of urinary bladder, large postvoid residual volume 136 mL. 2. Partially visualized prostate due to rectal gas shadowing. 3. Left renal simple cyst. This document has been electronically signed by: Andie Farrell MD on 04/24/2025 15:03:29
--- OUTSIDE RECORDS SUMMARY | 2025-04-24 08:30 | XMS_ITS | Patient Health Record ---
Author Organization [facility] Address [address] [place] [id number] Care Team Providers Care Greeter Name Role Phone Vince Sousa Jr Reason For Referral No Information Plan Of Treatment No Information
--- OUTSIDE RECORDS SUMMARY | 2025-04-24 08:30 | XMS_ITS | Patient Health Record ---
Author Organization [facility] Lizzette flanagan [place]azy Address [address] [place] [address] Care Team Providers Care Paint Spray Tender Name Role Phone Haseeb Cruz Primary Care Provider Unav ailable Regan Bruce Unavailable [phone] Allergies No Known Allergies Reason For Referral No Information Medications Medication SIG (Take, Route, Frequency, Duration) Notes Start Date End Date Status Losartan Potassium 25 MG 1 tablet Orally Once a day Active Immunizations Vaccine Route Administration Date Status Comme nts Influenza Unknown 04/21/2025 Refused Social History Tobacco Use: Social History Observation Description Date Details (start date - stop date) Never Smoker NA - NA Tobacco use other than smoking: Question Answer Notes Are you an other tobacco user? No Tobacco Control (Standard) Question Answer Notes Tobacco use: Nonsmoker Additional Findings: Tobacco non-user Current no nsmoker AUDIT-C (Standard) Question Answer Notes Did you have a drink contain ing alcohol in the past year? Yes How often did you have a dri nk containing alcohol in the past year? Declined to specify (0 point) How many drinks did you have on a typical day when you were drinking in the past year? Declined to specify (0 point) How often did you have six o r more drinks on one occasion in the past year? 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 Vital Signs Blood pressure diastolic 65 mm Hg 04/21/2025 Height 5ft 11in in 04/21/2025 Blood pressure systolic 130 mm Hg 04/21/2025 Weight 224 lbs 04/21/2025 BMI 31.24 kg/m2 04/21/2025 Encounters Encounter Location Date Provider Diagnosis [facility] [address] 04/21/2025 Regan Bruce Pain in left foot M79.672 ; Plantar fibromatosis M72.2 ; 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 ; Pain in right foot M79.671 ; Pain in right ankle and joints of right foot M25.571 ; Bursitis of intermetatarsal bursa of right foot M77.51 and Metatarsalgia, right foot M77.[address] [facility] [address] 01/23/2025 Regan Bruce [facility] [address] 04/21/2025 Regan Bruce Assessments Encounter Date Diagnosis (ICD Code) Assessment Notes Treatment Notes Treatment Clinical Notes Section Notes 04/21/2025 Pain in left foot (ICD-10 - M79.672) 04/21/2025 Plantar fibromatosis (ICD-10 - M72.2) 04/21/2025 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) 04/21/2025 Pain in right foot (ICD-10 - M79.671) 04/21/2025 Pain in right ankle and joints of right foot (ICD-10 - M25.571) 04/21/2025 Bursitis of intermetatarsal bursa of right foot (ICD-10 - M77.51) 04/21/2025 Metatarsalgia, right foot (ICD-10 - M77.41) Plan Of Treatment Pending Test Test Name Order Date X ray : Foot, right 3V 04/21/2025 Insurance Providers Payer Name Payer Address Payer Phone Subscriber Number Group Number Insured Name Patient Relationship to Insured Coverage Start Date Coverage End Date [facility] [address] [place] [address] [phone] [id number] Beth Guzman Spouse - patient is the spouse of the insured Medical (General) History Medical History History ICD Code Rheumatic fever Chicken pox
== END 2025-04-24 08:19 | disposition home or self-care (01) ==
LOC: HO.HMGCX 08:18
PROVIDERS: PCP Nurse Practitioner Family; Visit Provider Nurse Practitioner Family
DX: R97.20 Elevated prostate specific antigen [PSA] (principal)
CPT/HCPCS: 76770

== ENCOUNTER → 2025-04-24 08:23 | Outpatient (BNV) | payer BC, SELFPAY | PROVIDERS: PCP Nurse Practitioner Family; Visit Provider Radiology Diagnostic Radiology | DX: N28.1 Cyst of kidney, acquired (principal) | CPT/HCPCS: 76770 ==

== ENCOUNTER 2025-05-04 06:20 | Outpatient (REF) | payer BC, SELFPAY ==
[2025-05-04 10:48] LABS: PSA,Total (Free>4and<10) 3.66 ng/mL (0.00-4.00)
== END 2025-05-04 06:21 | disposition home or self-care (01) ==
LOC: HO.HMGCLDS 06:20
PROVIDERS: PCP Nurse Practitioner Family; Visit Provider Nurse Practitioner Family
DX: Z12.5 Encounter for screening for malignant neoplasm of prostate (principal); R97.20 Elevated prostate specific antigen [PSA]
CPT/HCPCS: 36415; 84153

== ENCOUNTER 2025-05-10 09:31 | Outpatient (AMB) | payer BC, SELFPAY ==
--- NOTE | 2025-05-10 09:52 | MHC.OFFVIS ---
Intake Visit Reasons: 3m/ PSA &Free/ US Intake Note: Patient is present for 3M/PSA&FREE/US Urology Medication:NONE Antibiotic Allergy:NONE Blood Thinner:NONE Civil Rights Investigator Required: No Allergies No Known Allergies Allergy (Verified 05/10/25 10:27) Medication List - Last Reconciled 05/10/25 by DARRYN Aviles losartan 25 mg PO DAILY HPI Comments Details: Mickey is a very pleasant 64-year-old male patient of Dr. Malik. He has a past medical history of diverticulosis and hypertension. He presents to the office today for follow-up. Of note, patient was seen approximately 3 months ago as a new patient for an elevated PSA at which time a retroperitoneal ultrasound and redraw of PSA were ordered for further assessment evaluation. These results were reviewed and communicated with the patient today 05/15 bilateral kidneys with no hydronephrosis or renal calculi. Simple left renal cysts measuring 1.8 cm. The urinary bladder demonstrates no calculus, masses, or focal wall thickening. Mildly elevated postvoid residual during imaging of 135 mL. Prostate measures approximately 42 mL. PSAs are as follows: PSA: 02/08 2.3, 06/13 2.0, 06/14 4.1, 02/12 4.4, 05/15 3.7 Urine culture: 02/12 E coli We did discussed potential causes of elevated PSA as well as labile PSA. We discussed correlation of urinary tract infection and elevated PSA. We also discusses slight elevated postvoid residual during imaging and incomplete bladder emptying. When asked he does report a family history of prostate cancer. He reports his father had prostate cancer. NATALIE during last office visit 02/12 was performed and noted to be smooth and no suspicious nodules palpated. When asked he denies any bothersome urinary issues or concerns. He denies urinary urgency, urinary frequency, incontinence, nocturia, hematuria, dysuria, foul smelling urine, changes to urinary stream, flank pain, fever, and or chills. He is happy with his current voiding parameters. We discussed at length potential causes of elevated PSA as well as further workup in risks and benefits of these interventions. All questions were answered. He discusses how well he is feeling. In office urinalysis results reviewed with the patient today. He otherwise offers no other issues or concerns. [facility] Medical History Diverticulosis Hypertension Actinic keratoses Surgical History S/P wisdom tooth extraction Hx of arthroscopy of knee H/O umbilical hernia repair H/O colonoscopy Family History Father Hypertension Diabetes Mother Hypertension Aneurysm Social History Housing: House Alcohol intake: current Alcohol intake frequency: a few times a week Patient Tobacco Use Status: Former Tobacco user e-Cigarette/Vaping Use: Never Used Second Hand Smoke Exposure: No service: No Current occupational status: employed Current occupation: [employer] Current occupational exposures/hazards: No Cognitive needs: No Hearing needs: No Vision needs: Yes Review of Systems Const All systems reviewed & are unremarkable except as noted in HPI and below Physical Exam Const General: cooperative, healthy appearing, comfortable, no acute distress, well developed, alert and awake Orientation/consciousness: patient oriented x3 Limitations: no limitations HEENT Head: Yes normal to inspection, Yes normocephalic and Yes atraumatic Ears: hearing grossly normal bilaterally Eyes General: appearance normal, both eyes and all related structures Neck Neck: Yes normal visual inspection and Yes trachea midline Chest Chest palpation & inspection: normal inspection of the chest Resp Effort & Inspection: normal respiratory effort and able to speak in complete sentences Cardio Rate: regular rate GI Inspection: Yes normal to inspection General: Yes no CVA tenderness Back/Spine/Pelvis Back: no CVA tenderness Skin General skin exam: no rashes or lesions noted Neuro General: patient oriented x3 Extrem General: Yes normal to inspection Psych Appearance: grossly normal and well kempt Mental Status: mental status grossly normal Speech and movement: Normal speech and movement present and Clear speech present Affect: normal affect Attitude: cooperative Thought process: Normal thought process present Thought content: Normal thought content present Insight: Fair insight present (Psych) Judgement: Fair judgement present (Psych) Results Reviewed Results Reviewed: Date of Service: 04/24/25 Procedure(s): US retroperitoneal comp Findings: Right kidney normal size and echotexture, 11.1 cm length. No hydronephrosis, mass or calculus. Normal color flow. Left kidney normal size and echotexture, 10.4 cm in length. No hydronephrosis, or calculus. Simple exophytic cyst 1.6 x 1.8 x 1.6 cm of the lower pole. Normal color flow. Urinary bladder demonstrates no calculus, mass or focal wall thickening. Prevoid bladder volume is 381, incomplete emptying with large postvoid residual volume 136 mL. Bilateral ureteral jets are seen. Prostate is not entirely seen, posterior inferior aspect is obscured by rectal gas shadowing, the visualized portion measures 3.5 x 4.9 x 4.8 cm, 42 mL. Impression: 1. Incomplete emptying of urinary bladder, large postvoid residual volume 136 mL. 2. Partially visualized prostate due to rectal gas shadowing. 3. Left renal simple cyst. Assessment & Plan Assessment & Plan (1) Elevated PSA: Code(s): R97.20 - Elevated prostate specific antigen [PSA] Category: Medical (2) Renal cyst: Code(s): N28.1 - Cyst of kidney, acquired Category: Medical (3) Family history of prostate cancer: Code(s): Z80.42 - Family history of malignant neoplasm of prostate Category: Medical Plan In office urinalysis results reviewed with the patient today; as noted above. Recent PSA results reviewed with the patient today; as noted above. Recent retroperitoneal ultrasound results reviewed with the patient today; as noted above. We discussed potential causes of elevated PSA/labile We discussed importance of surveillance monitoring Will continue with surveillance monitoring at this time. Patient currently denies any bothersome urinary issues or concerns. He reports be happy with current voiding parameters. Follow-up in 4-6 months with PSA and PVR; or sooner with any issues, concerns, and or questions. Orders: Orders PSA,Total (Free>4and<10) 4 Months R97.20 - Elevated prostate specific antigen [PSA] AMB Urinalysis Automated Today Z13.9 - Encounter for screening, unspecified Medications: Discontinued ciprofloxacin HCl Discontinued Reason: Patient Completed Course 500 mg PO DAILY 3 days 3 tabs 0RF Patient Instructions: The patient had an opportunity to ask questions regarding the treatment plan. All questions were answered. Physical exam, labs, and imaging were discussed and reviewed in detail. As well as risks, benefits, and discussion of treatment choices. No major barriers to understanding were identified. The patient expressed understanding and agreement with the above treatment plan. The patient was made aware they should contact our office by phone for worsening of their current condition, the appearance of new symptoms, or with any questions or concerns. Compliance is encouraged with any medications and follow up testing that is ordered. It is a privilege to be allowed the opportunity to participate in? your urological care.? Again, if you have any questions or concerns If you have any questions or concerns please do not hesitate to contact me. The office is [phone]. This note is constructed using voice recognition software. While every effort has been made to ensure accuracy marketing intelligence manager errors may have been included. Yours sincerely, DARRYN Aviles Coding Level of Care Code Est Pt Level 3 (32924) Diagnoses Elevated PSA R97.20 Renal cyst N28.1 Family history of prostate cancer Z80.42
--- OUTSIDE RECORDS SUMMARY | 2025-05-10 10:16 | XMS_ITS | Patient Health Record ---
Author Organization [facility] Address [address] [place] [address] Care Team Providers Care Transmission System Operator Name Role Phone Vince Sousa Jr Reason For Referral No Information Plan Of Treatment No Information
--- OUTSIDE RECORDS SUMMARY | 2025-05-10 10:16 | XMS_ITS | Patient Health Record ---
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 Vital Signs Blood pressure diastolic 65 mm Hg 04/21/2025 Height 5ft 11in in 04/21/2025 Blood pressure systolic 130 mm Hg 04/21/2025 Weight 224 lbs 04/21/2025 BMI 31.24 kg/m2 04/21/2025 Encounters Encounter Location Date Provider Diagnosis [facility] [address] 04/21/2025 Regan Bruce Pain in left foot M79.672 ; Plantar fibromatosis M72.2 ; 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 ; Pain in right foot M79.671 ; Pain in right ankle and joints of right foot M25.571 ; Bursitis of intermetatarsal bursa of right foot M77.51 and Metatarsalgia, right foot M77.[address] [facility] [address] 01/23/2025 Regan Bruce [facility] [address] 04/21/2025 Regan Bruce Assessments Encounter Date Diagnosis [...] Insured Coverage Start Date Coverage End Date [facility] [address] [place] [address] [phone] [id number] Beth Guzman Spouse - patient is the spouse of the insured Medical (General) History Medical History History ICD Code Rheumatic fever Chicken pox
== END 2025-05-10 11:24 | disposition home or self-care (01) ==
LOC: HO.HUSH 09:31
PROVIDERS: PCP Nurse Practitioner Family; Visit Provider Nurse Practitioner Family
DX: R97.20 Elevated prostate specific antigen [PSA] (principal); N28.1 Cyst of kidney, acquired; Z80.42 Family history of malignant neoplasm of prostate; Z13.9 Encounter for screening, unspecified
CPT/HCPCS: 99213

== ENCOUNTER → 2025-05-10 09:31 | Outpatient (BNVA) | payer BC, SELFPAY | PROVIDERS: PCP Nurse Practitioner Family; Visit Provider Nurse Practitioner Family | DX: R97.20 Elevated prostate specific antigen [PSA] (principal) | CPT/HCPCS: 81003 ==

== ENCOUNTER 2025-06-21 09:54 | Outpatient (AMB) | payer BC, SELFPAY ==
--- NOTE | 2025-06-21 09:58 | MHC.PC.OV ---
Vital Signs 06/21/25 09:59 Height 5 ft 11 in Weight 227 lb BMI 31.7 BP 136/72 Blood Pressure Location Lt brachial Position Sitting Respiration 16 Pulse 105 H Pulse Source Pulse Oximeter Temp 98.2 F Temp Source Oral Pulse Oximetry (%) 96 Oxygen Delivery Method Room Air Intake Visit Reasons: Annual PE Stage Hand Required: No Accompanied by: Self / Same As Patient Allergies No Known Allergies Allergy (Verified 06/21/25 09:59) Medication List - Last Reconciled 06/21/25 by MICHELL Trent-MERE losartan 25 mg PO DAILY Tobacco use date assessed: 06/21/25 Fall risk assessment: No Falls in past year Last assessed Fall Risk: 06/21/25 Dental Screening Dental Screen Date: 06/21/25 Did you have a dental visit in the last 12 months?: Yes Did you have a dental problem in the last 6 months where you did not have access to dental care?: No Was dental information given to patient?: Patient has dentist HPI Annual PE HPI Details History of Present Illness The patient is a 64-year-old male presenting for a physical examination. He reports no chest pain, dyspnea, abdominal pain, hematochezia, constipation, diarrhea, suicidal ideation, or homicidal ideation, indicating a stable general health status. The patient is under the care of a urologist for prostate health management, suggesting ongoing monitoring and management of prostate-related issues. He declines any vaccinations at this time His colon cancer screening is up to date, reflecting adherence to recommended preventative care measures. Health Maintenance - Colon cancer screening is current - Declines vaccinations Social History Review of Systems - General: Denies chest pain, dyspnea, abdominal pain, hematochezia, constipation, diarrhea, suicidal ideation, or homicidal ideation Physical Exam General: Cooperative, healthy appearing, comfortable, no acute distress and well developed Orientation: Patient oriented x3 Limitations: No limitations Head: Normal to inspection Ears: Hearing grossly normal bilaterally Nose: Normal external nose present Face and sinus: Normal facial exam Eyes: Appearance normal, both eyes and all related structures Neck: Normal visual inspection and Yes full ROM Respiratory: Normal respiratory effort and able to speak in complete sentences. Clear to auscultation bilaterally Cardiovascular: Regular rate and rhythm. Normal S1 and S2 GI: Normal to inspection. Soft to palpation and nontender, small umbilical hernia : Testicles without masses/lesions and no hernias appreciated. Patient sees a urologist for prostate health. Skin: No rashes or lesions noted Neuro: Patient oriented x3 Extremities: Normal to inspection Results Plan labs, and restart monitoring BP at home, sending me values [facility] Medical History Diverticulosis Hypertension Actinic keratoses Surgical History S/P wisdom tooth extraction Hx of arthroscopy of knee H/O umbilical hernia repair H/O colonoscopy Family History Father Hypertension Diabetes Mother Hypertension Aneurysm Social History Housing: House Alcohol intake: current Alcohol intake frequency: a few times a week Patient Tobacco Use Status: Former Tobacco user e-Cigarette/Vaping Use: Never Used Second Hand Smoke Exposure: No service: No Current occupational status: employed Current occupation: [employer] Current occupational exposures/hazards: No Cognitive needs: No Hearing needs: No Vision needs: Yes Questionnaire Thrive Questionnaire Date Thrive assessed: 12/14/24 I am a: Patient What is your living situation today?: I have a steady place to live Within the past 12 months, did the food you bought not last and you didn't have the money to get more?: Never true Within the past 12 months, did you worry whether your food would run out before you got money to buy more?: Never true Do you have trouble paying for medicines?: No Do you have trouble getting transportation to medical appointments?: No Do you have trouble paying your heating and electricity bill?: No Do you have trouble taking care of your child, family member or friend?: No Do you have trouble with day-to-day activities such as bathing, preparing meals, shopping, managing finances, etc.?: No Are you currently unemployed and looking for a job?: No Are you interested in more education?: No Please select the resources that you would like help with: None Currently or been in a relationship where the following occur: I choose not to answer THRIVE Score: 0 MARY BETH-7 AMB Questionnaire MARY BETH-7 Date MARY BETH - 7 assessed: 12/14/24 Source: Developed by Drs. Robin Carlin, Jacki Zelaya, Yobani Sanchez and colleagues, with an educational antoni from [email or web address]. Physical exam (Primary Care) Vital Signs: Last Vital Signs Temp 98.2 F 06/21/25 09:59 Pulse 105 H 06/21/25 09:59 Resp 16 06/21/25 09:59 BP 136/72 06/21/25 09:59 Pulse Ox 96 06/21/25 09:59 Oxygen Delivery Method Room Air 06/21/25 09:59 BMI result Body Mass Index 31.7 Tobacco/Smoking Status: Tobacco use Status Tobacco use date assessed 06/21/25 06/21/25 10:02 Patient Tobacco Use Status Former Tobacco user 06/21/25 10:02 e-Cigarette/Vaping Use Never Used 06/21/25 10:02 Thrive Assessment: Date of Thrive Assessment Date Thrive assessed 12/14/24 06/21/25 10:02 Currently or been in a relationship where the following occur: I choose not to answer Coding Level of Care Code Est Pt Prev Care >65y(51923) Diagnoses Physical exam Z00.00 Assessment & Plan Assessment & Plan (1) Physical exam: Code(s): Z00.00 - Encounter for general adult medical examination without abnormal findings Category: Medical Plan . Orders: Orders AMB EKG-In Office Today Z00.00 - Encounter for general adult medical examination without abnormal findings TSH reflex Free T4 Today Z00.00 - Encounter for general adult medical examination without abnormal findings Lipid Panel Today Z00.00 - Encounter for general adult medical examination without abnormal findings Complete Blood Count Auto Diff Today Z00.00 - Encounter for general adult medical examination without abnormal findings Comprehensive [place]. Panel Fast Today Z00.00 - Encounter for general adult medical examination without abnormal findings UA CC w/rflx Micro + Cult Today Z00.00 - Encounter for general adult medical examination without abnormal findings
[2025-06-21 09:59] VITALS: BP 136/72; PULSE 105; RESP 16; TEMP 36.8; O2SAT 96; BMI 31.7
--- OUTSIDE RECORDS SUMMARY | 2025-06-21 10:57 | XMS_ITS | Patient Health Record ---
[facility] Lizzette Sanchez Address [address] [facility] [place] [address] Care Team Providers Care Pharmaceutical Development Technician Name Role Phone Haseeb Cruz Primary Care Provider Unav ailable Regan Bruce Unavailable [phone] Allergies No Known Allergies Reason For Referral Diagnosis 1 Plantar fibromatosis (M72.2) Diagnosis 2 Pain in left foot (M 79.672) Diagnosis 3 Pain in right foot ( M79.671) Referring Provider First Name Sabrina Bledsoe Referring Provider Last Name New Referring Provider Speciality Internal M edicine Referred Organization [facility] Daniel Referred Provider Regan Bruce Referred Address [address] [facility] [address] ,[place], [place],[address], Referred Provider Specialty Podiatry Referral Priority Routine Medications Medication SIG (Take, Route, Frequency, Duration) [...] Risk Notes Problem Metatarsalgia of right foot ([id number]) Metatarsalgia, right foot (M77.41) Active confirmed Problem Plantar fibromatosis (35310271) 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 Vital Signs Blood pressure diastolic 65 mm Hg 04/21/2025 Height 5ft 11in in 04/21/2025 Blood pressure systolic 130 mm Hg 04/21/2025 Weight 224 lbs 04/21/2025 BMI 31.24 kg/m2 04/21/2025 Encounters Encounter Location Date Provider Diagnosis [address] [address] 04/21/2025 Regan Bruce Pain in left foot M79.672 ; Plantar fibromatosis M72.2 ; 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 [address] 05/31/2025 Regan Bruce [address] [address] 06/05/2025 Regan Bruce Assessments Encounter Date Diagnosis (ICD [...] Insured Coverage Start Date Coverage End Date [facility] [address] [place] [address] [phone] [id number] Beth Guzman Spouse - patient is the spouse of the insured Medical (General) History Medical History History ICD Code Rheumatic fever Chicken pox
--- OUTSIDE RECORDS SUMMARY | 2025-06-21 10:57 | XMS_ITS | Patient Health Record ---
Author Organization [facility] Address [address] [place] [address] Care Team Providers Care Hatch Supervisor Name Role Phone Vince Sousa Jr Reason For Referral No Information Plan Of Treatment No Information
== END 2025-06-21 10:49 | disposition home or self-care (01) ==
LOC: HO.HMCC 09:55
PROVIDERS: PCP Nurse Practitioner Family; Visit Provider Nurse Practitioner Family
DX: Z00.00 Encounter for general adult medical examination without abnormal findings (principal)